=== PATIENT | male | born 1950 | race Caucasian/White ===

== ENCOUNTER 2017-08-13 12:28 | Emergency (ER) | payer MEDICARE, MEDICAID ==
--- NOTE | 2017-08-13 14:00 | RAD ---
TWO VIEWS SACRUM AND COCCYX SERIES: Indication: Back pain. FINDINGS: There is limited evaluation without a lateral view. The patient could not tolerate positioning. No ob vious discrete fracture otherwise depicted. IMPRESSION: Limited evaluation. No definite acute fracture. Limited evaluation without a lateral view. POS: [facility]
--- NOTE | 2017-08-13 14:31 | RAD ---
ONE VIEW LUMBAR SPINE: History: Pain. Comparison: None. FINDINGS: One view lumbar spine demonstrates five lumbar type vertebral bodies. No obvious fracture. Mild leftw lena rotation may be positional. IMPRESSION: Incomplete evaluation of lumbar spine. Additional imaging as warranted. POS: [facility]
[2017-08-13 15:35] LABS: Bilirubin Negative (Negative); Blood, Urine Small (Negative); Clarity CLEAR (Clear); Glucose, Urine (Dipstick) Negative (Negative); Leukocyte Large (Negative); Nitrite Negative (Negative); Protein, Urine (Dipstick) Negative (Neg-Trace); Specific Gravity, Urine 1.008 (1.002-1.036); Urobilinogen 0.2 mg/dL (0.2-1.0); pH, Urine 7.5 (5.0-9.0)
[2017-08-13 15:37] LABS: Bacteria/HPF 1+ HPF (None Seen); Hyaline Casts/LPF 0-3 HYALINE CAST LPF (0-3 Hyaline); Pathc Cast-AUWi Flag 0.72 (0-2.49); Squamous Epithelial None Seen HPF (0-3)
[2017-08-13] MEDS ORDERED: Ondansetron ODT 4 MG TAB ONE (15:55)
[2017-08-13] MEDS ORDERED: cefTRIAXone\\ROCEPHIN 1 GM VIAL ONE (16:51)
== END 2017-08-13 19:40 | disposition home or self-care (01) ==
LOC: ERS 12:28
DX: N15.9 Renal tubulo-interstitial disease, unspecified (principal); I50.9 Heart failure, unspecified; I11.0 Hypertensive heart disease with heart failure; E66.9 Obesity, unspecified; J44.9 Chronic obstructive pulmonary disease, unspecified; Z86.718 Personal history of other venous thrombosis and embolism; Z87.891 Personal history of nicotine dependence; Z79.899 Other long term (current) drug therapy
CPT/HCPCS: 51701; 72020; 72220; 81003; 81015; 96365; 96375; J0696; J2270; Q0162

== ENCOUNTER 2017-11-20 13:49 | Emergency (ER) | payer MEDICARE, MEDICAID ==
[2017-11-20] MEDS ORDERED: Sterile Water 10 ML VIAL IVP SCH (14:44)
[2017-11-20] MEDS ORDERED: Activase 2 MG VIAL CATH SCH (14:44)
== END 2017-11-20 19:36 ==
LOC: ERS 13:49
DX: T82.49XA Other complication of vascular dialysis catheter, initial encounter (principal); E11.9 Type 2 diabetes mellitus without complications; I11.0 Hypertensive heart disease with heart failure; I50.9 Heart failure, unspecified; F41.9 Anxiety disorder, unspecified; G47.30 Sleep apnea, unspecified; E66.9 Obesity, unspecified; J44.9 Chronic obstructive pulmonary disease, unspecified
CPT/HCPCS: 80061; 82248; 85610; J2997; 36415; 80053; 84443; 85025; 99284; A4216

== ENCOUNTER 2018-02-11 11:11 | Inpatient (IN) | payer MEDICARE, MEDICAID ==
[2018-02-11] MEDS ORDERED: Morphine 4 MG/ML VIAL ONE (12:06)
[2018-02-11 12:48] LABS: #Eosinphils 0.1 thou/uL (0.0-0.7); #Lymphocytes 1.2 thou/uL (1.20-3.40); #Monocytes 1.9 thou/uL (0.11-0.59); #Neutrophils 14.5 thou/uL (1.40-6.50); %Eosinophils 0.5 % (0.0-10.0); %Monocytes 10.5 % (0.0-10.0); %Neutrophils 81.9 % (42.0-75.0); Hemoglobin 12.1 g/dL (14.0-18.0); Mean Corpuscular Hemoglobin 29.3 pg (27.0-31.0); Mean Corpuscular Volume 91.6 fL (78.0-98.0); Mean Platelet Volume 7.3 fL (7.4-10.4); Platelet Count 303 thou/uL (130-400); RBC Distribution Width 13.3 % (11.5-14.5); Red Blood Cell (RBC) Count 4.13 mill/uL (4.70-6.10); White Blood Cell (WBC) Count 17.7 thou/uL (4.8-10.8)
[2018-02-11 12:55] LABS: Bilirubin Negative (Negative); Blood, Urine Small (Negative); Clarity CLEAR (Clear); Glucose, Urine (Dipstick) Negative (Negative); Leukocyte Large (Negative); Nitrite Negative (Negative); Protein, Urine (Dipstick) Negative (Neg-Trace); Specific Gravity, Urine 1.008 (1.002-1.036); Urobilinogen 0.2 mg/dL (0.2-1.0); pH, Urine 6.5 (5.0-9.0)
[2018-02-11 12:58] LABS: Bacteria/HPF None Seen HPF (None Seen); Hyaline Casts/LPF 0-3 HYALINE CAST LPF (0-3 Hyaline); Squamous Epithelial 0-3 HPF (0-3); WBC/HPF 21-50 HPF (0-3)
[2018-02-11 13:09] LABS: Renal Epithelial None Seen HPF (0-3); Transitional Epithelial NONE SEEN HPF (0-3)
--- NOTE | 2018-02-11 13:11 | RAD ---
PORTABLE CHEST: DATE: 02/11/2018. PROVIDED CLINICAL HISTORY: Chest pain. FINDINGS: Evaluation is limited by patient body habitus. Cardiac silhouette appears enlarged. No definite foc al consolidation, pleural fluid, or pneumothorax apparent. IMPRESSION: Cardiomegaly without evidence for an acute cardiopulmonary process. POS: [facility]
--- NOTE | 2018-02-11 13:12 | RAD ---
LEFT SHOULDER RADIOGRAPHS 3 VIEWS: DATE: 02/11/2018. PROVIDED CLINICAL HISTORY: Shoulder pain. FINDINGS: Evaluation is limited by patient body habitus. Acromioclavicular joint osteoarthrosis is demonstrate d. No definite evidence for a fracture or other acute osseous abnormality. If there is persistent c linical concern, conservative management and followup imaging are advised. IMPRESSION: As above. POS: [facility]
[2018-02-11 13:13] LABS: ALT (SGPT) 14 U/L (8-55); AST (SGOT) 18 U/L (5-34); Albumin 3.4 g/dL (3.4-4.8); Alkaline Phosphatase 47 U/L (40-150); Anion Gap 19 mmol/L (10-20); BUN (Urea Nitrogen) 15 mg/dL (8.4-25.7); Bilirubin, Total 0.4 mg/dL (0.2-1.2); CK (CPK) 37 U/L (30-200); Calc. Creatinine Clearance 0 mL/min (70-130); Calcium 9.1 mg/dL (7.8-10.44); Carbon Dioxide 23 mmol/L (23-31); Chloride 99 mmol/L (98-107); Estimated GFR-MDRD Greater than 90; Globulin 3.6 g/dL (2.4-3.5); Glucose 156 mg/dL (80-115); Lipase 13 U/L (8-78); Potassium 4.3 mmol/L (3.5-5.1); Sodium 137 mmol/L (136-145)
--- NOTE | 2018-02-11 13:15 | RAD ---
RIGHT SHOULDER RADIOGRAPHS 3 VIEWS: DATE: 02/11/2018. PROVIDED CLINICAL HISTORY: Right shoulder pain. FINDINGS: Evaluation is limited by patient body habitus. Narrowing of the subacromial space suggests rotator c uff insufficiency. No definite evidence for a fracture. Acromioclavicular changes are seen. IMPRESSION: Acromioclavicular joint osteoarthrosis and findings suggesting rotator cuff insufficiency. POS: [facility]
[2018-02-11] MEDS ORDERED: cefTRIAXone\\ROCEPHIN 1 GM VIAL ONE (13:24)
[2018-02-11] MEDS ORDERED: MEROPENEM 1 GM/50 ML 1 GM in Premix Bag 1 BAG IVPB SCH (14:00)
[2018-02-11] MEDS ORDERED: Acetaminophen 500 MG TAB ONE (14:03)
[2018-02-11] MEDS ORDERED: Acetaminophen 325 MG TAB PO PRN (14:38)
[2018-02-11] MEDS ORDERED: Ondansetron PF 4 MG/2 ML Vial IVP PRN (14:38)
[2018-02-11] MEDS ORDERED: Potassium Chloride 20 MEQ TAB PO SCH (15:00)
--- NOTE | 2018-02-11 15:06 | PDOC.FPRHP ---
- History of Present Illness Chief Complaint: constipation History of Present Illness: This is a 67 yo M w/ PMH including CHF, hep C, SANKET, bph, HTN, myasthenia gravis , morbid obesity, copd, DM2, and DVT who comes in with chief complaint of constipation for last 8 days. He states he has had flank pain which he describes as muscle spasm sometimes made worse by moving on the bed. Denies fevers, chills, or sweats. Denies abdominal pain. Denies N/V/D. States he has had burning with urination for 1 month but no blood in the urine. Denies blood in stool. Patient states he has tried milk of magnesia. He states he would like an enema. Patient also states he has had shoulder pain going on for a few days which he describes as an ache. States he has had cellulitus for 10 years of the lower extremities, he follows with Dr. Ricardo shankar. ED Course: Meropenem Rocephin NS x2 morphine 4 mg - Allergies/Adverse Reactions Allergies Allergy/AdvReac Type Severity Reaction Status Date / Time amoxicillin trihydrate Allergy Verified 09/28/16 17:37 [From Augmentin] clindamycin Allergy Verified 09/28/16 17:37 gatifloxacin [From Tequin] Allergy Verified 09/28/16 17:37 Penicillins Allergy Verified 02/11/18 18:56 potassium clavulanate Allergy Verified 09/28/16 17:37 [From Augmentin] vancomycin Allergy Verified 09/28/16 17:37 morphine [From MS Contin] AdvReac Mild Anxiety Verified 10/11/16 10:19 - Home Medications Medication Instructions Recorded Confirmed Type Pregabalin [Lyrica] 75 mg PO TID 09/20/15 09/29/16 History Ipratropium/Albuterol Sulfate 3 ml NEB Q6HR neb 04/20/16 09/29/16 Rx [DuoNeb] Pyridostigmine [place] [Mestinon] 30 mg PO 0900,1300,1700 tab 04/20/16 Rx predniSONE 40 mg PO QAM-WM #30 tab 06/20/16 09/29/16 Rx Potassium Chloride [K-Dur] 20 meq PO TID-WM 08/12/16 09/29/16 History Carvedilol [Coreg] 25 mg PO QAM 09/29/16 09/29/16 History Cyclobenzaprine HCl 10 mg PO HS PRN 02/11/18 02/11/18 History Sertraline HCl 50 mg PO DAILY 02/11/18 02/11/18 History Spironolactone 25 mg PO 02/11/18 History Tamsulosin HCl [Flomax] 0.4 mg PO DAILY 02/11/18 02/11/18 History Torsemide [Demadex] 100 mg PO DAILY 02/11/18 02/11/18 History - History PMHx: chf, hep c, sanket, bph, htn, myasthenia gravis, obesity, copd, dm2, dvt PSHx: cholecystectomy FHx:non-contributory Social: former drug and tobacco use, stoppped at age 32, no alcohol - Review of Systems General: denies: fever/chills, night sweats, fatigue ENT: denies: nasal congestion Respiratory: denies: cough, congestion, shortness of breath Cardiovascular: reports: edema. denies: chest pain, palpitation Gastrointestinal: reports: constipation, abdominal pain. denies: nausea, vomiting, diarrhea, GI bleeding Genitourinary: reports: dysuria. denies: discharge Skin: reports: other (chronic cellutlitus) Musculoskeletal: denies: pain, arthritis/arthralgias Neurological: denies: numbness, weakness - Vital signs BP: 150/88 HR: 80 RR: 26 Tmax: 99.2 Pox: 94% on RA Wt: 222kg - Physical Exam Constitutional: NAD, awake, alert and oriented, other (morbidly obese, appears older than age) HEENT: normocephalic and atraumatic, PERRLA, MMM Neck: supple Heart: RRR -Heart: difficult to appreciate 2/2 morbidly obesity Lungs: CTAB -Lungs: decreased air movement 2/2 morbid obesity, mild wheeze on the R side Abdomen: soft, non-tender, bowel sounds present -Abdomen: morbidly obese Musculoskeletal: normal tone Neurological: no focal deficit, CN II-XII intact -Skin: redness and warmth to the R and L lower extremities around the ankles Psychiatric: normal mood and affect FMR H&P: Results - Labs Result Diagrams: 02/11/18 12:41 02/11/18 12:41 Lab results: WBC 17.7 thou/uL (4.8-10.8) H 02/11/18 12:41 Hgb 12.1 g/dL (14.0-18.0) L 02/11/18 12:41 Hct 37.9 % (42.0-52.0) L 02/11/18 12:41 MCV 91.6 fL (78.0-98.0) 02/11/18 12:41 Plt Count 303 thou/uL (130-400) 02/11/18 12:41 Neutrophils % 81.9 % (42.0-75.0) H 02/11/18 12:41 Sodium 137 mmol/L (136-145) 02/11/18 12:41 Potassium 4.3 mmol/L (3.5-5.1) 02/11/18 12:41 Chloride 99 mmol/L (98-107) 02/11/18 12:41 Carbon Dioxide 23 mmol/L (23-31) 02/11/18 12:41 BUN 15 mg/dL (8.4-25.7) 02/11/18 12:41 Creatinine 0.82 mg/dL (0.7-1.3) 02/11/18 12:41 Glucose 156 mg/dL (80-115) H 02/11/18 12:41 Lactic Acid 3.1 mmol/L (0.5-2.2) H 02/11/18 12:41 Calcium 9.1 mg/dL (7.8-10.44) 02/11/18 12:41 Total Bilirubin 0.4 mg/dL (0.2-1.2) 02/11/18 12:41 AST 18 U/L (5-34) 02/11/18 12:41 ALT 14 U/L (8-55) 02/11/18 12:41 Alkaline Phosphatase 47 U/L (40-150) 02/11/18 12:41 Creatine Kinase 37 U/L (30-200) 02/11/18 12:41 B-Natriuretic Peptide 27.2 pg/mL (0-100) 02/11/18 12:41 Serum Total Protein 7.0 g/dL (5.8-8.1) 02/11/18 12:41 Albumin 3.4 g/dL (3.4-4.8) 02/11/18 12:41 Lipase 13 U/L (8-78) 02/11/18 12:41 Urine Ketones Negative mg/dL (Negative) 02/11/18 12:20 Urine Blood Small (Negative) H 02/11/18 12:20 Urine Nitrite Negative (Negative) 02/11/18 12:20 Ur Leukocyte Esterase Large (Negative) H 02/11/18 12:20 Urine RBC 4-6 HPF (0-3) 02/11/18 12:20 Urine WBC 21-50 HPF (0-3) H 02/11/18 12:20 Ur Squamous Epith Cells 0-3 HPF (0-3) 02/11/18 12:20 Urine Bacteria None Seen HPF (None Seen) 02/11/18 12:20 FMR H&P: A/P - Problem List (1) Sepsis secondary to UTI Current Visit: Yes Status: Acute Code(s): A41.9 - SEPSIS, UNSPECIFIED ORGANISM; N39.0 - URINARY TRACT INFECTION, SITE NOT SPECIFIED (2) Hep C w/o coma, chronic Current Visit: Yes Status: Acute Code(s): B18.2 - CHRONIC VIRAL HEPATITIS C (3) HTN (hypertension) Current Visit: Yes Status: Acute Code(s): I10 - ESSENTIAL (PRIMARY) HYPERTENSION (4) COPD (chronic obstructive pulmonary disease) Current Visit: Yes Status: Acute (5) Diabetes mellitus Current Visit: Yes Status: Acute Code(s): E11.9 - TYPE 2 DIABETES MELLITUS WITHOUT COMPLICATIONS (6) DVT (deep venous thrombosis) Current Visit: No Status: Acute Code(s): I82.409 - ACUTE EMBOLISM AND THOMBOS UNSP DEEP VN UNSP LOWER EXTREMITY Comment: f/u inr (7) BPH (benign prostatic hyperplasia) Current Visit: No Status: Chronic Code(s): N40.0 - BENIGN PROSTATIC HYPERPLASIA WITHOUT LOWER URINRY TRACT SYMP (8) Morbid obesity with body mass index of 50 or higher Current Visit: No Status: Chronic Code(s): E66.01 - MORBID (SEVERE) OBESITY DUE TO EXCESS CALORIES (9) Myasthenia gravis Current Visit: No Status: Chronic Code(s): G70.00 - MYASTHENIA GRAVIS WITHOUT (ACUTE) EXACERBATION Comment: on immunosuppressants (10) SANKET (obstructive sleep apnea) Current Visit: No Status: Chronic Code(s): G47.33 - OBSTRUCTIVE SLEEP APNEA (ADULT) (PEDIATRIC) - Plan # Sepsis 2/2 UTI - blood cx, urine cx - meropenem as discussed with ID - afebrile, BP WNL, WBC 17.7 - lactic 3.1 will trend # Constipation - disempacted in ED, removed 1 golf ball sized pellet and 3 slightly smaller ones - enema - senna, milk of mag # Chronic Cellulitus - on levoquin at [place], hold - cont metronidazole # SANKET 2/2 morbid obesity - duonebs PRN - o2 > 88% - Cpap 16/ # CHF not in exacerbation - home meds # Chronic Hep C # BPH - home meds # DM - not on meds per [place] records - SSI, accuchecks # Myasthenia Gravis - home meds # Hx of DVT - lovenox - will consult pharmacy for appropriate dosing - warfarin not on home med list, will check INR as he has been on it in the past Fluids: NS 150 ml/hr Diet: HH Dispo: 2 days pending urine, blood cx FMR H&P: Upper Level - Plan Date/Time: 02/11/181499 I, [], have evaluated this patient and agree with findings/plan as outlined by inclusion intern resident. Pertinent changes/additions are listed here. Addendum - Attending - Attending Attestation Date/Time: 02/11/182019 I personally evaluated the patient and discussed the management with Dr. Micky Celaya I agree with the History, Examination, Assessment and Plan documented above with any addition or exceptions noted below. 67 yo morbidly obese bed bound male admitted from local [place] with sepsis secondary to pyelonephritis . Patient recently c/o LB pain and dysuria. Patient with multiple drug antibiotic allergies and consulted ID for recommendations for antibiotic coverage(meropenam). Patient with chronic cellulitis LE. 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 Rectal exam notable for fecal impaction and will continued bowel evacuation.
[2018-02-11 15:16] LABS: INR-International Normal Ratio 2.5; Prothrombin Time 27.4 SEC (12.0-14.7)
[2018-02-11] MEDS ORDERED: HumaLOG 300 UNITS/3 ML VIAL SC PRN (15:25)
[2018-02-11] MEDS ORDERED: Dextrose 5% in Water 1,000 ML IV PRN (15:25)
[2018-02-11] MEDS ORDERED: Dextrose 50% Abboject 50 ML SYRINGE SLOW IVP PRN (15:25)
[2018-02-11] MEDS ORDERED: Milk Of Magnesia 30 ML UDCUP PO SCH (15:30)
[2018-02-11] MEDS ORDERED: Potassium Chloride 20 MEQ TAB ONE (15:58)
[2018-02-11] MEDS: metroNIDAZOLE 500 MG TAB PO SCH ×2 (16:02→22:29)
[2018-02-11] MEDS ORDERED: Warfarin Sodium 5 MG TAB PO SCH (17:00)
[2018-02-11 17:55] VITALS: BMI 67.0
[2018-02-11] MEDS ORDERED: Enoxaparin Sodium 40 MG/0.4 ML SYRINGE SC SCH ×2 (18:00→18:15)
[2018-02-11] MEDS: Pregabalin 75 MG CAP PO SCH ×2 (18:26→22:29)
[2018-02-11] MEDS: Pyridostigmine Bromide IR 60 MG TAB PO SCH (18:37)
[2018-02-11] MEDS: Sodium Chloride 0.9% 1,000 ML IV SCH ×2 (18:37→22:41)
[2018-02-11 19:06] LABS: Lactic Acid 2.1 mmol/L (0.5-2.2)
[2018-02-11] MEDS ORDERED: Meropenem 1 GM in Admixture Fee 1 EACH IVPB SCH (22:00)
[2018-02-11] MEDS: Senokot S 8.6-50 MG TAB PO SCH (22:29)
[2018-02-11] MEDS: MEROPENEM 1 GM/50 ML 1 GM in Premix Bag 1 BAG IVPB SCH (22:30)
[2018-02-11] MEDS: traMADol HCl 50 MG TAB PO PRN (22:39)
[2018-02-12] MEDS: Sodium Chloride 0.9% 1,000 ML IV SCH ×2 (02:05→11:21)
[2018-02-12] MEDS: traMADol HCl 50 MG TAB PO PRN ×2 (03:42→10:28)
[2018-02-12 05:33] LABS: #Eosinphils 0.2 thou/uL (0.0-0.7); #Lymphocytes 1.6 thou/uL (1.20-3.40); #Neutrophils 12.1 thou/uL (1.40-6.50); %Basophils 0.2 % (0.0-1.0); %Lymphocytes 10.2 % (21.0-51.0); %Monocytes 12.3 % (0.0-10.0); %Neutrophils 76.2 % (42.0-75.0); Hemoglobin 11.6 g/dL (14.0-18.0); Mean Corpuscular HGB CONC 32.2 g/dL (32.0-36.0); Mean Corpuscular Hemoglobin 29.6 pg (27.0-31.0); Mean Corpuscular Volume 91.7 fL (78.0-98.0); Mean Platelet Volume 8.1 fL (7.4-10.4); Platelet Count 331 thou/uL (130-400); RBC Distribution Width 13.4 % (11.5-14.5); Red Blood Cell (RBC) Count 3.94 mill/uL (4.70-6.10); White Blood Cell (WBC) Count 15.9 thou/uL (4.8-10.8)
[2018-02-12 05:38] LABS: INR-International Normal Ratio 2.6; Prothrombin Time 28.2 SEC (12.0-14.7)
[2018-02-12 05:56] LABS: Anion Gap 17 mmol/L (10-20); BUN (Urea Nitrogen) 14 mg/dL (8.4-25.7); Calc. Creatinine Clearance 266 mL/min (70-130); Calcium 8.8 mg/dL (7.8-10.44); Carbon Dioxide 25 mmol/L (23-31); Chloride 101 mmol/L (98-107); Estimated GFR-MDRD Greater than 90; Glucose 122 mg/dL (80-115); Potassium 4.1 mmol/L (3.5-5.1); Sodium 139 mmol/L (136-145)
[2018-02-12] MEDS: MEROPENEM 1 GM/50 ML 1 GM in Premix Bag 1 BAG IVPB SCH ×2 (05:59→13:33)
[2018-02-12] MEDS ORDERED: Spironolactone 25 MG TAB PO SCH (08:00)
[2018-02-12] MEDS ORDERED: predniSONE 20 MG TAB PO SCH (08:00)
--- NOTE | 2018-02-12 08:29 | PDOC.FM ---
- Subjective Subjective: This morning patient states that frequent bed re-positioning is causing him pain. He states the flank pain he came in with is improved since having fecal dis-impaction. He did not have BM overnight. He denies N/V. Denies fevers, chills, sweats. Denies burning with urination or blood in the urine. Patient states he would like to go back to [place] as soon as he is medically cleared. He understands why he needs to be here for now. - Objective Vital Signs & Weight: Vital Signs (12 hours) Temp Pulse Resp BP Pulse Ox 02/12/18 03:40 98.7 F 69 22 H 128/65 92 L 02/11/18 21:00 82 18 96 Weight Weight 214.549 kg I&O: 02/11/18 02/12/18 02/13/18 06:59 06:59 06:59 Intake Total 2500 Balance 2500 Result Diagrams: 02/12/18 04:41 02/12/18 04:41 Phys Exam - Physical Examination Constitutional: NAD morbidly obese HEENT: PERRLA, moist MMs decreased air movement 2/2 body habitus mild expiratory wheezes on the R Cardiovascular: RRR, no significant murmur morbidly obese No pain to palpation Musculoskeletal: pulses present Boil on R foot, erythematous, patient states has been there some time Neurological: non-focal, moves all 4 limbs Psychiatric: normal affect, A&O x 3 Dx/Plan (1) Sepsis secondary to UTI Code(s): A41.9 - SEPSIS, UNSPECIFIED ORGANISM; N39.0 - URINARY TRACT INFECTION, SITE NOT SPECIFIED Status: Acute (2) Hep C w/o coma, chronic Code(s): B18.2 - CHRONIC VIRAL HEPATITIS C Status: Acute (3) HTN (hypertension) Code(s): I10 - ESSENTIAL (PRIMARY) HYPERTENSION Status: Acute (4) COPD (chronic obstructive pulmonary disease) Status: Acute (5) Diabetes mellitus Code(s): E11.9 - TYPE 2 DIABETES MELLITUS WITHOUT COMPLICATIONS Status: Acute (6) DVT (deep venous thrombosis) Code(s): I82.409 - ACUTE EMBOLISM AND THOMBOS UNSP DEEP VN UNSP LOWER EXTREMITY Status: Acute (7) BPH (benign prostatic hyperplasia) Code(s): N40.0 - BENIGN PROSTATIC HYPERPLASIA WITHOUT LOWER URINRY TRACT SYMP Status: Chronic (8) Morbid obesity with body mass index of 50 or higher Code(s): E66.01 - MORBID (SEVERE) OBESITY DUE TO EXCESS CALORIES Status: Chronic (9) Myasthenia gravis Code(s): G70.00 - MYASTHENIA GRAVIS WITHOUT (ACUTE) EXACERBATION Status: Chronic (10) SANKET (obstructive sleep apnea) Code(s): G47.33 - OBSTRUCTIVE SLEEP APNEA (ADULT) (PEDIATRIC) Status: Chronic - Plan Plan: # Sepsis 2/2 UTI- resolved - blood cx, urine cx - meropenem as discussed with ID - afebrile, BP WNL, WBC 17.7-> 15.6 - lactic 3.1-> 1.3 -> 2.1 # Constipation - disempacted in ED, removed 1 golf ball sized pellet and 3 slightly smaller ones - ordered enema - senna, milk of mag # Chronic Cellulitus - on levoquin at [place], hold - on metronidazole for cellulitus at [facility] per patient # SANKET 2/2 morbid obesity - duonebs PRN - o2 > 88% - Cpap 28/05 # CHF not in exacerbation - home meds # Chronic Hep C # BPH - home meds # DM - not on meds per [place] records - SSI, accuchecks # Myasthenia Gravis - home meds # Hx of DVT - on warfarin per patient, this is not on his [facility] med list - requested updated med list - started warfarin at 5mg daily which was dose from previous hosp stay - patient states he follows with coumadin clinic Fluids: NS 150 ml/hr Diet: Dispo: pending cultures for sensitivity, sepsis resolve, will discuss d/c this afternoon and f/u cultures outpt per patient's request Addendum - Attending - Attending Attestation Date/Time: 02/12/18 [id number] I personally evaluated the patient and discussed the management with Dr. Celaya. I agree with the History, Examination, Assessment and Plan documented above with any addition or exceptions noted below. The patient is feeling better. Will give enema this morning. Called [facility]. Nurse noted that his UA finalized and grew klebsiella sensitive to levaquin. Gatifloxacin is listed in the patient's allergies however he had been receiving levaquin since 02/10 without reaction to the drug. Will send him home to continue this antibiotic and with a bowel regimen.
[2018-02-12] MEDS ORDERED: Fleet Enema 133 ML BOT FS SCH (08:30)
[2018-02-12] MEDS ORDERED: Warfarin Sodium 5 MG TAB PO SCH ×2 (09:00→17:00)
[2018-02-12] MEDS ORDERED: Enoxaparin Sodium 40 MG/0.4 ML SYRINGE SC SCH (09:00)
[2018-02-12] MEDS ORDERED: Tamsulosin HCl 0.4 MG CAP PO SCH (09:00)
[2018-02-12] MEDS ORDERED: Carvedilol 25 MG TAB PO SCH (09:00)
[2018-02-12] MEDS ORDERED: Torsemide 100 MG TAB PO SCH (09:00)
[2018-02-12] MEDS: Pyridostigmine Bromide IR 60 MG TAB PO SCH ×2 (09:04→13:33)
[2018-02-12] MEDS: Senokot S 8.6-50 MG TAB PO SCH (09:04)
[2018-02-12] MEDS: Pregabalin 75 MG CAP PO SCH ×2 (09:05→15:27)
[2018-02-12] MEDS: metroNIDAZOLE 500 MG TAB PO SCH ×2 (09:05→15:27)
[2018-02-12] MEDS ORDERED: Sulfameth/Trimethoprim DS 800-160mg TAB PO SCH ×3 (09:42→21:00)
--- NOTE | 2018-02-12 13:35 | DIS ---
DATE OF ADMISSION: 02/11/2018 DATE OF DISCHARGE: 02/12/2018 RESIDENT: Alvaro Celaya MD. ADMITTING ATTENDING: Reji Rizvi MD. DISCHARGE ATTENDING: Edith Harp MD. CONSULTS: None. PROCEDURE: Fecal disimpaction. PRIMARY DIAGNOSES: Constipation, sepsis secondary to urinary tract infection. SECONDARY DIAGNOSES: 1. Chronic hepatitis C. 2. Hypertension. 3. Chronic obstructive pulmonary disease. 4. Diabetes mellitus. 5. History of deep venous thrombosis. 6. Benign prostatic hyperplasia. 7. Morbid obesity with BMI greater than 50. 8. Myasthenia gravis. 9. Obstructive sleep apnea. DISCHARGE MEDICATIONS: The patient is to be restarted on same medications as he was at the [facility]. Incomplete med list was faxed from the [facility]. He should be restarted on the same regimen he was at, at the time of admission including the Levaquin 750 mg daily which he was already taking at the [facility]. Senna docusate was added to this regimen. DISCONTINUED MEDICATIONS: None. HISTORY OF PRESENT ILLNESS AND HOSPITAL COURSE: This is a 67-year-old gentleman, who comes in with chief complaint of flank pain going on for about a week. He states that he has not had a bowel movement in the last 8 days. He describes the flank pain as muscle spasms which are made worse with moving. Denies fevers, chills, sweats. Denied abdominal pain. Denied nausea, vomiting, diarrhea. He states he has a burning with urination for about one month with no blood in the urine. The patient denied blood in the stool. He stated that he had tried milk of magnesia at the [facility], and he would like enema. He also complained of shoulder pain going on for a few days, which he described as an ache, made worse with movement. He states that he has had cellulitis of lower extremities for about 10 years which he follows with Dr. Silva for on an outpatient basis. The patient was admitted to the hospital meeting sepsis criteria for white count and respiratory rate. The patient had a urine culture at the [facility] 3 days prior, results were obtained on date of discharge with sensitivity to Levaquin which the patient was already on at the [facility]. I discussed this with [facility] staff that they can continue his Levaquin, which the patient had at the [facility] already prescribed. The patient had an enema and fecal disimpaction while here at the hospital. Disimpacted 4 pellets about the size of golf ball on the date of admission. The patient did not have bowel movement at the time of discharge, but Fleet Enema was given. Prescribed senna and milk of magnesia for discharge. The patient has chronic cellulitis of the lower extremities. Recommended Podiatry consult upon discharge as well as follow up with ID Dr. Silva for followup. The patient's lactic acid on admission was 3.1, but this came down to 1.3. DISPOSITION: Stable. DISCHARGE INSTRUCTIONS: Location: [facility]. Diet: Bariatric. ACTIVITY: As tolerated. FOLLOWUP: 1. [employer] for assistance with changing diet to assist with weight loss. 2. Dr. Silva in 1 to 2 weeks for followup on chronic cellulitis. 3. Podiatry in 1 week for followup on boil of left foot. 4. PCP in 2 to 3 days. Job ID: [id number]
[2018-02-12 15:27] VITALS: BP 168/94; TEMP 98.7
--- NOTE | 2018-02-14 10:36 | PQF ---
[employer] Reports Winform ViewerMISHA WHITT GRADY *r [phone] [address] [place] [address] [phone] CLINICAL DOCUMENTATION CLARIFICATION FORM: POST DISCHARGE Addendum to original discharge summary date: CHF present on admission and under treatment Late entry note date: __ Please exercise your independent, professional judgment in responding to the clarification form. Clinical indicators are provided on the bottom of this form for your review Please check appropriate box(s): HEART FAILURE: A. TYPE: [ ] Systolic / HFrEF [ x] Diastolic / HFpEF [ ] Combined Systolic / Diastolic B. ACUITY [ ] Acute [ ] Acute on Chronic [ x ] Chronic [ ] Other diagnosis [ ] Unable to determine In addition, please specify: Present on Admission (POA): [ x ] Yes [ ] No [ ] Unable to determine For continuity of documentation, please document condition throughout progress notes and discharge summary. Thank You. CLINICAL INDICATORS - SIGNS / SYMPTOMS / LABS CHF- ED, H&P, PROGRESS NOTES, D/S RISKS: HYPERTENSION- ED, H&P, PROGRESS NOTES, D/S TREATMENTS: ON HOME MEDS, SPIRONOLACTONE- H&P (This form is maintained as a part of the permanent medical record) 2014 [employer]. All Rights Reserved [employer] [email or web address] [phone] [facility]
== END 2018-02-12 16:24 | DRG 872 ==
LOC: ERS 11:11 → ERHOLD 14:45 → 2NO 17:20
PROVIDERS: ADMIT Family Medicine; ATTEND Family Medicine
DX: A41.9 Sepsis, unspecified organism (principal); Z68.44 Body mass index [BMI] 60.0-69.9, adult; L03.116 Cellulitis of left lower limb; L03.115 Cellulitis of right lower limb; N39.0 Urinary tract infection, site not specified; I50.32 Chronic diastolic (congestive) heart failure; B18.2 Chronic viral hepatitis C; G47.33 Obstructive sleep apnea (adult) (pediatric); N40.0 Benign prostatic hyperplasia without lower urinary tract symptoms; I11.0 Hypertensive heart disease with heart failure; E66.01 Morbid (severe) obesity due to excess calories; E11.9 Type 2 diabetes mellitus without complications; K59.00 Constipation, unspecified; G70.00 Myasthenia gravis without (acute) exacerbation; J44.9 Chronic obstructive pulmonary disease, unspecified; Z87.891 Personal history of nicotine dependence; Z86.718 Personal history of other venous thrombosis and embolism; Z90.49 Acquired absence of other specified parts of digestive tract
CPT/HCPCS: 36415; 36416; 51701; 71045; 80048; 80053; 81003; 81015; 82550; 83605; 83690; 83880; 84484; 85025; 85610; 87040; 87077; 87086; 87186; 94660; 96361; 96365; 96367; 96375; J0696; J1650; J2185; J2270; J7506

== ENCOUNTER 2018-03-28 13:17 | Inpatient (IN) | payer MEDICARE, MEDICAID ==
[2018-03-28 14:36] LABS: #Eosinphils 0.2 thou/uL (0.0-0.7); #Lymphocytes 1.3 thou/uL (1.20-3.40); #Monocytes 0.7 thou/uL (0.11-0.59); #Neutrophils 9.1 thou/uL (1.40-6.50); %Basophils 0.2 % (0.0-1.0); %Lymphocytes 11.2 % (21.0-51.0); %Monocytes 6.5 % (0.0-10.0); %Neutrophils 80.1 % (42.0-75.0); Mean Corpuscular HGB CONC 32.9 g/dL (32.0-36.0); Mean Corpuscular Hemoglobin 29.5 pg (27.0-31.0); Mean Corpuscular Volume 89.7 fL (78.0-98.0); Mean Platelet Volume 7.2 fL (7.4-10.4); Platelet Count 310 thou/uL (130-400); RBC Distribution Width 14.8 % (11.5-14.5); Red Blood Cell (RBC) Count 4.08 mill/uL (4.70-6.10); White Blood Cell (WBC) Count 11.3 thou/uL (4.8-10.8)
[2018-03-28] MEDS ORDERED: methylPREDNISolone Sod Succ/PF 125 MG/2 ML VIAL ONE (14:53)
[2018-03-28] MEDS ORDERED: Famotidine/PF 20 mg/2ml Vial ONE (14:53)
[2018-03-28] MEDS ORDERED: diphenhydrAMINE 50 MG/ML VIAL ONE (14:53)
[2018-03-28 15:03] LABS: ALT (SGPT) 23 U/L (8-55); AST (SGOT) 23 U/L (5-34); Albumin 3.7 g/dL (3.4-4.8); Alkaline Phosphatase 75 U/L (40-150); Anion Gap 19 mmol/L (10-20); BUN (Urea Nitrogen) 24 mg/dL (8.4-25.7); Bilirubin, Total 0.2 mg/dL (0.2-1.2); Calc. Creatinine Clearance 0 mL/min (70-130); Calcium 8.8 mg/dL (7.8-10.44); Carbon Dioxide 25 mmol/L (23-31); Chloride 102 mmol/L (98-107); Estimated GFR-MDRD Greater than 90; Globulin 3.1 g/dL (2.4-3.5); Glucose 146 mg/dL (80-115); Potassium 4.3 mmol/L (3.5-5.1); Protein, Total 6.8 g/dL (5.8-8.1); Sodium 142 mmol/L (136-145)
[2018-03-28] MEDS ORDERED: Acetaminophen 325 MG TAB PO PRN (16:23)
[2018-03-28] MEDS ORDERED: Dextrose 50% Abboject 50 ML SYRINGE SLOW IVP PRN (16:23)
[2018-03-28] MEDS ORDERED: Guaifenesin DM 100-10/5 ML UDCUP PO PRN (16:23)
[2018-03-28] MEDS ORDERED: Dextrose 5% in Water 1,000 ML IV PRN (16:23)
--- NOTE | 2018-03-28 16:59 | HP ---
REASON FOR ADMISSION: Drug rash. HISTORY OF PRESENT ILLNESS: The patient is a 67[facility]-old [facility] resident , who mentions that from last 10 days or so, the patient has been having a rash, which has been slowly getting worse. This rash was initially on his feet. It was red and swollen. He was given Keflex. Thinking it was cellulitis by his nurse practitioner. Also, the patient was started on Tamiflu at [facility] with index case of flu with another resident there. The rash was progressively getting worse, and by last Sunday, the rash had come up to his knees. Then, they thought he might be allergic to Keflex and Keflex was held and Tamiflu was continued. As this was progressively getting worse, they stopped Tamiflu as well. This Sunday, Dr. Ozzy Mishra, his primary care physician asked him to continue Tamiflu and he has been taking it all the week. He says the rash is come up all through his back and to the front of his chest now and he thinks he is swollen and hot. He normally has loose stools, but has been having more diarrhea now. PAST MEDICAL AND SURGICAL HISTORY: History of myasthenia gravis on mycophenolate, Pyridostigmine, and prednisone; history of hypertension; poor functional status with the patient being a [facility] resident; history of CHF; obstructive sleep apnea; benign prostatic hypertrophy; morbid obesity; COPD; diabetes mellitus type 2; history of DVT in the past; chronic hep C; and cholecystectomy. CURRENT MEDICATIONS: Please note, [facility] was not sent accurate list of medications. He lives at [facility] and will be obtaining the same now. Per his prior discharge from here, the patient was on, 1. Tylenol 3. 2. Coreg 12.5 mg p.o. nightly. 3. Cholestyramine 4 g p.o. twice daily. 4. Flexeril 10 mg nightly. 5. Gabapentin 100 mg p.o. 3 times daily. 6. Mucinex 600 mg twice daily. 7. [place] p.r.n. 8. Motrin p.r.n. 9. Mycophenolate 500 mg twice daily. 10. Potassium chloride 40 mEq daily. 11. Prednisone 20 mg daily. 12. Lyrica 75 mg 3 times daily. 13. Pyridostigmine 30 mg 3 times daily. 14. Zoloft 50 mg daily. 15. Spironolactone 25 mg daily. 16. Flomax 0.4 mg daily. 17. Torsemide 100 mg daily. 18. Coumadin 5 mg daily. 19. Senokot two tablets p.o. twice daily. ALLERGIES: THE PATIENT IS ALLERGIC TO MULTIPLE MEDICATIONS INCLUDING AUGMENTIN, CLINDAMYCIN, GATIFLOXACIN, VANCOMYCIN, AND MS CONTIN. PERSONAL HISTORY: Does not abuse alcohol or drugs. Quit smoking many years ago. Has been a fdc resident at [facility]. He is essentially bed bound and they have been trying to get him to mobilize into a wheelchair, but the patient got sick from last 3 weeks or so. The patient states they in fact got a new wheelchair that fits him now at the [facility]. FAMILY HISTORY: Mother at the age of 95, father at the age of 91, both of natural causes. Code status, the patient wants to be a do not attempt to resuscitate. Power of contracts attorney is Ms. Ashley Ayoub, who is a close family friend of him. REVIEW OF SYSTEMS: CONSTITUTIONAL: Negative for weight loss or gain, ability to conduct usual activities. SKIN: Negative for rash, itching. EYES: Negative for double vision, pain. ENT/MOUTH: Negative for nose bleeding, neck stiffness, pain, tenderness. CARDIOVASCULAR: Negative for palpitations, dyspnea on exertion, orthopnea. RESPIRATORY: Negative for shortness of breath, wheezing, cough, hemoptysis, fever or night sweats. GASTROINTESTINAL: Negative for poor appetite, abdominal pain, heartburn, nausea , vomiting, constipation, or diarrhea. GENITOURINARY: Negative for urgency, frequency, dysuria, nocturia. MUSCULOSKELETAL: Negative for pain, swelling. NEUROLOGIC/PSYCHIATRIC: Negative for anxiety, depression. ALLERGY/IMMUNOLOGIC: Negative for skin rash, bleeding tendency. PHYSICAL EXAMINATION: GENERAL: The patient is a 67-year-old male, who is currently in mild distress from pain and swelling due to rash he has had. VITAL SIGNS: Blood pressure 170/86, pulse 74 per minute, respiratory rate 20 per minute, temperature 98.1 degrees Fahrenheit, and saturating 95% on room air. NECK: Supple. No elevated JVD. HEENT: Eyes; extraocular muscles intact. Pupils are reacting to light. Oral cavity, mucous membranes are dry. No exudates or congestion. RESPIRATORY SYSTEM: Air entry 1+ bilateral. Distant breath sounds. CARDIOVASCULAR SYSTEM: S1-S2 heard. Mildly tachycardic. ABDOMEN: Soft. No obvious organomegaly felt. The patient has a very obese abdomen. EXTREMITIES: There is diffuse erythematous rash with edema. No calf tenderness. The patient moves all extremities. CENTRAL NERVOUS SYSTEM: No gross focal deficits noted. The patient is awake and oriented well. PSYCHIATRIC SYSTEM: No obvious hallucinations or delusions. LABORATORY DATA: White count of 11, H and H of 12 and 36, platelet count 310, and MCV is 89 with 80% neutrophils. Electrolytes stable. BUN 24, creatinine 0.8, serum glucose 146, and CRP 2.3. Liver enzymes within normal limits. Albumin 3.7. CLINICAL IMPRESSION AND PLAN: The patient will be admitted to medical floor for severe drug eruption, which has been progressively getting worse from last 10 days. He is also allergic to multiple medications. As the patient is already on prednisone, we will start him on Solu-Medrol 40 mg IV q.6 hourly. He will also be on Pepcid 20 mg twice daily. I have spoken to Dr. Silva, who will be evaluating the patient as well. We will continue his myasthenic medication including mycophenolate and pyridostigmine as before. We will obtain stool and blood cultures. The patient has chronic hep C and it is unclear if his current rash is related to that. We will obtain accurate medication list from his [facility]. Job ID: [id number] [facility]
[2018-03-28] MEDS ORDERED: Acetaminophen/Codeine 30-300mg Tablet PO PRN (17:11)
[2018-03-28] MEDS: Pyridostigmine Bromide IR 60 MG TAB PO SCH (22:57)
[2018-03-28] MEDS: methylPREDNISolone Sod Succ 40 MG VIAL IVP SCH (22:57)
[2018-03-28] MEDS: Gabapentin 100 MG CAP PO SCH (22:58)
[2018-03-28] MEDS: guaiFENesin ER 600 MG TAB PO SCH (22:58)
[2018-03-28] MEDS: Cyclobenzaprine 10 MG TAB PO SCH (22:58)
[2018-03-28] MEDS: Cholestyramine/Aspartame 4 gm Packet PO SCH (22:58)
[2018-03-28] MEDS: Pregabalin 75 MG CAP PO SCH (22:58)
[2018-03-28] MEDS: HYDROcodone/Acetaminophen 5/325 mg Tablet PO SCH (22:59)
[2018-03-28] MEDS: Famotidine 20 MG TAB PO SCH (22:59)
[2018-03-28] MEDS: Mycophenolate 250 MG CAP PO SCH (23:14)
[2018-03-29 00:32] VITALS: BMI 62.8
[2018-03-29] MEDS ORDERED: Prevnar 13-Val Conj/PF 0.5 ML SYRINGE IM ONE (02:00)
[2018-03-29] MEDS: Bacteriostatic Water 30 ML VIAL FS PRN ×3 (03:58→14:41)
[2018-03-29] MEDS: methylPREDNISolone Sod Succ 40 MG VIAL IVP SCH ×4 (03:58→21:07)
[2018-03-29 08:08] LABS: #Eosinphils 0.1 thou/uL (0.0-0.7); #Lymphocytes 1.6 thou/uL (1.20-3.40); #Monocytes 0.3 thou/uL (0.11-0.59); #Neutrophils 10.6 thou/uL (1.40-6.50); %Eosinophils 0.7 % (0.0-10.0); %Lymphocytes 12.6 % (21.0-51.0); %Monocytes 2.2 % (0.0-10.0); %Neutrophils 84.4 % (42.0-75.0); Hemoglobin 11.8 g/dL (14.0-18.0); Mean Corpuscular Hemoglobin 28.7 pg (27.0-31.0); Mean Corpuscular Volume 89.5 fL (78.0-98.0); Mean Platelet Volume 7.7 fL (7.4-10.4); Platelet Count 360 thou/uL (130-400); RBC Distribution Width 15.1 % (11.5-14.5); Red Blood Cell (RBC) Count 4.12 mill/uL (4.70-6.10); White Blood Cell (WBC) Count 12.5 thou/uL (4.8-10.8)
[2018-03-29] MEDS: Enoxaparin Sodium 40 MG/0.4 ML SYRINGE SC SCH (08:13)
[2018-03-29] MEDS: Gabapentin 100 MG CAP PO SCH ×3 (08:13→20:47)
[2018-03-29] MEDS: Cholestyramine/Aspartame 4 gm Packet PO SCH ×2 (08:13→16:56)
[2018-03-29] MEDS: Famotidine 20 MG TAB PO SCH ×2 (08:14→20:47)
[2018-03-29] MEDS: HYDROcodone/Acetaminophen 5/325 mg Tablet PO SCH ×3 (08:14→20:49)
[2018-03-29] MEDS: Pregabalin 75 MG CAP PO SCH ×3 (08:14→20:48)
[2018-03-29] MEDS: guaiFENesin ER 600 MG TAB PO SCH ×2 (08:14→20:49)
[2018-03-29] MEDS: Tamsulosin HCl 0.4 MG CAP PO SCH (08:15)
[2018-03-29 08:27] LABS: ALT (SGPT) 23 U/L (8-55); AST (SGOT) 19 U/L (5-34); Albumin 3.8 g/dL (3.4-4.8); Alkaline Phosphatase 58 U/L (40-150); Anion Gap 21 mmol/L (10-20); BUN (Urea Nitrogen) 25 mg/dL (8.4-25.7); Bilirubin, Total 0.3 mg/dL (0.2-1.2); Calc. Creatinine Clearance 234 mL/min (70-130); Calcium 9.2 mg/dL (7.8-10.44); Carbon Dioxide 24 mmol/L (23-31); Chloride 102 mmol/L (98-107); Estimated GFR-MDRD 84; Globulin 2.8 g/dL (2.4-3.5); Glucose 184 mg/dL (80-115); Potassium 4.2 mmol/L (3.5-5.1); Protein, Total 6.6 g/dL (5.8-8.1); Sodium 143 mmol/L (136-145)
[2018-03-29] MEDS: Pyridostigmine Bromide IR 60 MG TAB PO SCH ×3 (09:10→20:48)
[2018-03-29] MEDS: Mycophenolate 250 MG CAP PO SCH ×2 (14:54→20:47)
--- NOTE | 2018-03-29 15:23 | PDOC.PN ---
- Subjective Encounter Start Date: 03/29/18 Encounter Start Time: 08:20 Pt seen jamison followup re; elida. Reports rash still present, itching, stinging and burning at the same time. - Objective Resuscitation Status - Order Detail: 03/28/18 16:16 Resuscitation Status Routine Resuscitation Status: DNAR: NO Resuscitation Discussed with: d/w patient in room 23 ER MAR Reviewed: Yes Vital Signs & Weight: Vital Signs (12 hours) Temp Pulse Resp BP Pulse Ox 03/29/18 08:11 97.9 F 78 20 172/77 H 96 03/29/18 08:00 94 L 03/29/18 04:00 97.7 F 70 18 145/68 H 94 L Weight Admit Weight 451 lb Weight 451 lb I&O: 03/28/18 03/29/18 03/30/18 06:59 06:59 06:59 Intake Total 720 600 Balance 720 600 Result Diagrams: 03/29/18 07:09 03/29/18 07:09 Additional Labs: Accuchecks 03/29/18 03/29/18 11:38 05:41 POC Glucose 191 H 177 H labs reviewed by me Phys Exam - Physical Examination Morbid obesity HEENT: moist MMs, sclera anicteric, oral pharynx no lesions, 2+ tonsils Neck: no nodes, no JVD, supple, full ROM Respiratory: clear to auscultation bilateral Cardiovascular: RRR, no rub S1, S2 Gastrointestinal: soft, non-tender, no distention, positive bowel sounds Musculoskeletal: edema present Neurological: moves all 4 limbs Psychiatric: normal affect, A&O x 3 Deviation from normal: rash all over the body, maculopapular, nontender Dx/Plan (1) Rash Code(s): R21 - RASH AND OTHER NONSPECIFIC SKIN ERUPTION Status: Acute Comment: Etiology unclear. ? drug-induced. Pt is on steroids. ID consult pending. (2) COPD (chronic obstructive pulmonary disease) Status: Chronic Comment: stable (3) Diabetes mellitus Code(s): E11.9 - TYPE 2 DIABETES MELLITUS WITHOUT COMPLICATIONS Status: Chronic Comment: reasonable control (4) HTN (hypertension) Code(s): I10 - ESSENTIAL (PRIMARY) HYPERTENSION Status: Chronic Comment: Monitor vital signs and titrate antihypertensives as needed (5) BPH (benign prostatic hyperplasia) Code(s): N40.0 - BENIGN PROSTATIC HYPERPLASIA WITHOUT LOWER URINRY TRACT SYMP Status: Chronic Comment: stable (6) Myasthenia gravis Code(s): G70.00 - MYASTHENIA GRAVIS WITHOUT (ACUTE) EXACERBATION Status: Chronic Comment: stable - Plan * . Review of Systems - Review of Systems Constitutional: negative: fever, chills, sweats, weakness, malaise Respiratory: negative: Cough, Shortness of Breath, SOB with Excertion, Pleuritic Pain, Wheezing Cardiovascular: negative: chest pain, palpitations, orthopnea, paroxysmal nocturnal dyspnea, edema, light headedness Gastrointestinal: negative: Nausea, Vomiting, Abdominal Pain, Diarrhea, Constipation, Melena, Hematochezia Genitourinary: negative: Dysuria, Frequency, Incontinence, Hematuria, Retention Skin: Rash. negative: Lesions, Noe, Bruising - Medications/Allergies Allergies/Adverse Reactions: Allergies Allergy/AdvReac Type Severity Reaction Status Date / Time amoxicillin Allergy Verified 03/29/18 01:08 clavulanic acid Allergy Verified 03/29/18 01:08 [From Augmentin] clindamycin Allergy Verified 03/29/18 01:08 gatifloxacin [From Tequin] Allergy Verified 03/29/18 01:09 oseltamivir [From Tamiflu] Allergy Verified 03/29/18 01:09 Penicillins Allergy Verified 03/29/18 01:08 vancomycin Allergy Verified 03/29/18 01:08 Medications: Current Medications Acetaminophen (Tylenol) 650 mg PO Q4H PRN PRN Reason: Headache/Fever/Mild Pain (1-3) Acetaminophen/Codeine Phosphate (Tylenol #3) 1 tab PO Q6H PRN PRN Reason: Moderate to Severe Pain (6-10) Hydrocodone Bitart/Acetaminophen ([place] 5/325) 1 tab PO TID [facility] Last Admin: 03/29/18 14:43 Dose: 1 tab Cholestyramine Resin (Questran Light) 4 gm PO BID-[facility] Last Admin: 03/29/18 08:13 Dose: 4 gm Cyclobenzaprine HCl (Flexeril) 10 mg PO HS [facility] Last Admin: 03/28/18 22:58 Dose: 10 mg Dextrose/Water (Dextrose 50%) 25 gm SLOW IVP PRN PRN PRN Reason: Hypoglycemia Enoxaparin Sodium (Lovenox) 40 mg SC 0900 [facility] Last Admin: 03/29/18 08:13 Dose: 40 mg Famotidine (Pepcid) 20 mg PO BID [facility] Last Admin: 03/29/18 08:14 Dose: 20 mg Gabapentin (Neurontin) 100 mg PO TID [facility] Last Admin: 03/29/18 14:42 Dose: 100 mg Glucagon (Glucagon) 1 mg IM PRN PRN PRN Reason: Hypoglycemia Guaifenesin (Mucinex) 600 mg PO BID [facility] Last Admin: 03/29/18 08:14 Dose: 600 mg Guaifenesin/Dextromethorphan (Robitussin Dm) 15 ml PO Q4H PRN PRN Reason: Cough Dextrose/Water (D5w) 1,000 mls @ 0 mls/hr IV .Q0M PRN PRN Reason: Hypoglycemia Insulin Human Lispro (Humalog) 0 units SC .MODERATE SLIDING SC PRN PRN Reason: Moderate Correctional Scale Insulin Human Lispro (Humalog) 0 units SC .BEDTIME SLIDING SC PRN PRN Reason: Bedtime Correctional Scale Methylprednisolone Sodium Succinate (Solu-Medrol) 40 mg IVP Q6H [facility] Last Admin: 03/29/18 14:41 Dose: 40 mg Mycophenolate Mofetil (Cellcept) 500 mg PO BID [facility] Last Admin: 03/29/18 14:54 Dose: Not Given Pregabalin (Lyrica) 75 mg PO TID [facility] Last Admin: 03/29/18 14:42 Dose: 75 mg Pyridostigmine [place] (Mestinon) 30 mg PO TID [facility] Last Admin: 03/29/18 14:42 Dose: 30 mg Sertraline HCl (Zoloft) 50 mg PO DAILY [facility] Last Admin: 03/29/18 08:13 Dose: 50 mg Sterile Water (Bacteriostatic Water) 1 ml FS PRN PRN PRN Reason: RECONSTITUTION Last Admin: 03/29/18 14:41 Dose: 1 ml Tamsulosin HCl (Flomax) 0.4 mg PO DAILY [facility] Last Admin: 03/29/18 08:15 Dose: 0.4 mg
--- NOTE | 2018-03-29 16:52 | CON ---
DATE OF CONSULTATION: 03/29/2018 REASON FOR CONSULTATION: Skin rash. HISTORY OF PRESENT ILLNESS: Mr. Majano is a 67-year-old gentleman who has a history of obesity, myasthenia gravis, SANKET, and previously treated and cured hepatitis C, whom I had seen in the past for multiple visits for recurrent episodes of cellulitis in the lower extremities. The episode in 2016 was felt to be due to gouty arthritis and I have not seen the patient since. He has gained quite a bit of weight. [facility] had [facility] and he was admitted in September 2016 with diarrhea secondary to Cryptosporidium and deep vein thrombosis and then was admitted again at the end of January last year because of constipation requiring fecal disimpaction. On admission, he was complaining of flank pain and he did not have any fever or chills. The patient had been prescribed levofloxacin at the penitentiary for presumed urinary tract infection. The urinalysis during that admission actually did show normal WBCs in the urine, so there is no evidence of urine infection then. The urine cultures were no growth as well. He had a C. difficile test which was antigen positive and toxin positive in February 23, subsequently he was given Tamiflu for a concern with influenza, although it was not documented. The more recently Keflex was prescribed before cellulitis and he has now rapidly developed diffuse erythroderma. He is awake, alert, oriented, pleasant, no acute distress. Denies headaches. No visual symptoms, sore throat, odynophagia, or dysphagia. He has itching in the skin of the chest and abdomen. No dyspnea or abdominal pain. Some diarrhea. He does have abdominal cramps when he is having bowel movements, but not otherwise. No joint symptoms. PAST MEDICAL HISTORY: Morbid obesity, treated and cured hepatitis C, cardiomyopathy, sleep apnea, BPH, hypertension, myasthenia gravis, COPD, DVT, cellulitis in the lower extremities in the past. PAST SURGICAL HISTORY: Includes cholecystectomy, right knee replacement. SOCIAL HISTORY: He is a former smoker. No alcoholic beverage use. Used drugs intravenously many decades ago. ALLERGIES: AMOXICILLIN, CLINDAMYCIN, LEVAQUIN, PENICILLIN, TAMIFLU, AND LIKELY A CEPHALOSPORIN ALLERGY. PHYSICAL EXAMINATION: VITAL SIGNS: Current vital signs; T-max 98, blood pressure 170/77, pulse 78, respirations 20, O2 saturation 96%. SKIN: Shows a diffuse skin erythroderma chest, abdomen, appendicular structure of the skin. The patient has a peripheral IV access and he is voiding in the diaper. He is 451 pounds. HEENT: No lymphadenopathy. Ocular movements conjugate. Oral cavity with numerous missing teeth. Oral mucosa is normal without any blisters. NECK: Supple. No jugular vein distention. LUNGS: Symmetric. Clear breath sounds. S1 and S2. HEART: Diminished heart sounds. No murmurs. ABDOMEN: Quite prominent. Mild tenderness in the lateral aspect. Bowel sounds are somewhat increased. No bladder distention. EXTREMITIES: No joint inflammatory activity. He is able to move extremities. Plantar responses are indifferent. No clonus. NEUROLOGIC: He is oriented, follows commands. Good recollection of events. LABORATORY DATA: White cell count is 11,000 and now 12.5, hemoglobin 12, platelets 310, 80% neutrophils. Sodium 142, creatinine 0.82. Liver profile normal. CRP 2.3, albumin 3.7. The patient had a C. difficile test submitted with both toxin and antigen positive results. Two sets of blood cultures thus far no growth. ASSESSMENT AND PLAN: 1. Morbid obesity. 2. Prior episodes of cellulitis in the past. 3. Clostridium difficile colitis with recurrence. 4. Treated hepatitis C and cured. 5. Diffuse erythroderma. DISCUSSION: Most likely scenario is a cephalosporin hypersensitivity reaction. He does not have evidence of a more aggressive process and I do not think that we need to worry about progression to TEN. The C. diff will be treated with oral vancomycin as usual and I would recommend a tapering dose after since he is at high risk for recurrence and has already had one or two recurrences. Job ID: [id number]
[2018-03-29] MEDS: Cyclobenzaprine 10 MG TAB PO SCH (20:49)
[2018-03-29] MEDS: Fidaxomicin 200 MG TAB PO SCH (20:50)
[2018-03-29] MEDS: HumaLOG 300 UNITS/3 ML VIAL SC PRN (21:08)
[2018-03-30] MEDS: methylPREDNISolone Sod Succ 40 MG VIAL IVP SCH ×4 (03:21→21:50)
[2018-03-30] MEDS: Cholestyramine/Aspartame 4 gm Packet PO SCH ×2 (07:47→17:30)
[2018-03-30] MEDS: Enoxaparin Sodium 40 MG/0.4 ML SYRINGE SC SCH (07:48)
[2018-03-30] MEDS: Gabapentin 100 MG CAP PO SCH ×3 (07:49→21:48)
[2018-03-30] MEDS: Pregabalin 75 MG CAP PO SCH ×3 (07:50→21:49)
[2018-03-30] MEDS: Famotidine 20 MG TAB PO SCH ×2 (07:50→21:47)
[2018-03-30] MEDS: Pyridostigmine Bromide IR 60 MG TAB PO SCH ×3 (07:50→21:48)
[2018-03-30] MEDS: Tamsulosin HCl 0.4 MG CAP PO SCH (07:50)
[2018-03-30] MEDS: Mycophenolate 250 MG CAP PO SCH ×2 (07:50→21:48)
[2018-03-30] MEDS: guaiFENesin ER 600 MG TAB PO SCH ×2 (07:50→21:48)
[2018-03-30] MEDS: HYDROcodone/Acetaminophen 5/325 mg Tablet PO SCH ×3 (07:51→21:49)
[2018-03-30] MEDS: Bacteriostatic Water 30 ML VIAL FS PRN ×2 (07:59→21:50)
[2018-03-30] MEDS: Fidaxomicin 200 MG TAB PO SCH ×2 (10:05→21:47)
--- NOTE | 2018-03-30 12:13 | PDOC.PN ---
- Subjective Encounter Start Date: 03/30/18 Encounter Start Time: 08:40 Pt seen for followup re: rash. Says he feels better. - Objective Resuscitation Status - Order Detail: 03/28/18 16:16 Resuscitation Status Routine Resuscitation Status: DNAR: NO Resuscitation Discussed with: d/w patient in room 23 ER Vital Signs & Weight: Vital Signs (12 hours) Temp Pulse Resp BP BP Pulse Ox 03/30/18 08:00 97.7 F 57 L 20 149/76 H 96 03/30/18 04:00 98.4 F 53 L 20 144/70 H 97 Weight Admit Weight 451 lb Weight 451 lb I&O: 03/29/18 03/30/18 03/31/18 06:59 06:59 06:59 Intake Total 720 1150 240 Balance 720 1150 240 Result Diagrams: 03/29/18 07:09 03/29/18 07:09 Additional Labs: Accuchecks 03/30/18 03/30/18 03/29/18 11:35 04:42 20:28 POC Glucose 181 H 162 H 217 H 03/29/18 16:42 POC Glucose 199 H Phys Exam - Physical Examination Morbid obesity HEENT: moist MMs Neck: supple Respiratory: clear to auscultation bilateral Cardiovascular: RRR Gastrointestinal: soft Musculoskeletal: edema present Neurological: moves all 4 limbs Psychiatric: normal affect, A&O x 3 Deviation from normal: rash all over trunk Dx/Plan (1) Rash Code(s): R21 - RASH AND OTHER NONSPECIFIC SKIN ERUPTION Status: Acute Comment: rash from cephalosporin allergy, improving with steroids (2) Clostridium difficile diarrhea Code(s): A04.72 - ENTEROCOLITIS D/T CLOSTRIDIUM DIFFICILE, NOT SPCF RECUR Status: Acute Comment: started on fidaxomicin (3) COPD (chronic obstructive pulmonary disease) Status: Chronic Comment: stable (4) Diabetes mellitus Code(s): E11.9 - TYPE 2 DIABETES MELLITUS WITHOUT COMPLICATIONS Status: Chronic Comment: reasonably controlled (5) HTN (hypertension) Code(s): I10 - ESSENTIAL (PRIMARY) HYPERTENSION Status: Chronic Comment: Improving control (6) BPH (benign prostatic hyperplasia) Code(s): N40.0 - BENIGN PROSTATIC HYPERPLASIA WITHOUT LOWER URINRY TRACT SYMP Status: Chronic Comment: stable (7) Myasthenia gravis Code(s): G70.00 - MYASTHENIA GRAVIS WITHOUT (ACUTE) EXACERBATION Status: Chronic Comment: stable - Plan * . Review of Systems - Review of Systems Respiratory: negative: Cough, Shortness of Breath, Hemoptysis, SOB with Excertion, Pleuritic Pain, Wheezing Cardiovascular: negative: chest pain, palpitations, orthopnea, paroxysmal nocturnal dyspnea, edema, light headedness Skin: Rash - Medications/Allergies Allergies/Adverse Reactions: Allergies Allergy/AdvReac Type Severity Reaction Status Date / Time amoxicillin Allergy Verified 03/29/18 01:08 clavulanic acid Allergy Verified 03/29/18 01:08 [From Augmentin] clindamycin Allergy Verified 03/29/18 01:08 gatifloxacin [From Tequin] Allergy Verified 03/29/18 01:09 oseltamivir [From Tamiflu] Allergy Verified 03/29/18 01:09 Penicillins Allergy Verified 03/29/18 01:08 vancomycin Allergy Verified 03/29/18 01:08 Medications: Current Medications Acetaminophen (Tylenol) 650 mg PO Q4H PRN PRN Reason: Headache/Fever/Mild Pain (1-3) Acetaminophen/Codeine Phosphate (Tylenol #3) 1 tab PO Q6H PRN PRN Reason: Moderate to Severe Pain (6-10) Hydrocodone Bitart/Acetaminophen ([place] 5/325) 1 tab PO TID [facility] Last Admin: 03/30/18 07:51 Dose: 1 tab Cholestyramine Resin (Questran Light) 4 gm PO BID-[facility] Last Admin: 03/30/18 07:47 Dose: Not Given Cyclobenzaprine HCl (Flexeril) 10 mg PO HS [facility] Last Admin: 03/29/18 20:49 Dose: 10 mg Dextrose/Water (Dextrose 50%) 25 gm SLOW IVP PRN PRN PRN Reason: Hypoglycemia Enoxaparin Sodium (Lovenox) 40 mg SC 0900 [facility] Last Admin: 03/30/18 07:48 Dose: 40 mg Famotidine (Pepcid) 20 mg PO BID [facility] Last Admin: 03/30/18 07:50 Dose: 20 mg Fidaxomicin (Dificid) 200 mg PO BID [facility] Last Admin: 03/30/18 10:05 Dose: 200 mg Gabapentin (Neurontin) 100 mg PO TID [facility] Last Admin: 03/30/18 07:49 Dose: 100 mg Glucagon (Glucagon) 1 mg IM PRN PRN PRN Reason: Hypoglycemia Guaifenesin (Mucinex) 600 mg PO BID [facility] Last Admin: 03/30/18 07:50 Dose: 600 mg Guaifenesin/Dextromethorphan (Robitussin Dm) 15 ml PO Q4H PRN PRN Reason: Cough Dextrose/Water (D5w) 1,000 mls @ 0 mls/hr IV .Q0M PRN PRN Reason: Hypoglycemia Insulin Human Lispro (Humalog) 0 units SC .MODERATE SLIDING SC PRN PRN Reason: Moderate Correctional Scale Insulin Human Lispro (Humalog) 0 units SC .BEDTIME SLIDING SC PRN PRN Reason: Bedtime Correctional Scale Last Admin: 03/29/18 21:08 Dose: 2 unit Methylprednisolone Sodium Succinate (Solu-Medrol) 40 mg IVP Q6H [facility] Last Admin: 03/30/18 07:58 Dose: 40 mg Mycophenolate Mofetil (Cellcept) 500 mg PO BID [facility] Last Admin: 03/30/18 07:50 Dose: 500 mg Pregabalin (Lyrica) 75 mg PO TID [facility] Last Admin: 03/30/18 07:50 Dose: 75 mg Pyridostigmine [place] (Mestinon) 30 mg PO TID [facility] Last Admin: 03/30/18 07:50 Dose: 30 mg Sertraline HCl (Zoloft) 50 mg PO DAILY [facility] Last Admin: 03/30/18 07:49 Dose: 50 mg Sterile Water (Bacteriostatic Water) 1 ml FS PRN PRN PRN Reason: RECONSTITUTION Last Admin: 03/30/18 07:59 Dose: 1 ml Tamsulosin HCl (Flomax) 0.4 mg PO DAILY [facility] Last Admin: 03/30/18 07:50 Dose: 0.4 mg
[2018-03-30] MEDS: HumaLOG 300 UNITS/3 ML VIAL SC PRN (21:47)
[2018-03-30] MEDS: Cyclobenzaprine 10 MG TAB PO SCH (21:47)
[2018-03-31] MEDS: methylPREDNISolone Sod Succ 40 MG VIAL IVP SCH (03:48)
[2018-03-31] MEDS: Bacteriostatic Water 30 ML VIAL FS PRN (03:48)
[2018-03-31] MEDS: HumaLOG 300 UNITS/3 ML VIAL SC PRN ×3 (05:29→17:44)
[2018-03-31] MEDS: Famotidine 20 MG TAB PO SCH ×2 (09:05→21:47)
[2018-03-31] MEDS: Cholestyramine/Aspartame 4 gm Packet PO SCH ×2 (09:05→17:56)
[2018-03-31] MEDS: Enoxaparin Sodium 40 MG/0.4 ML SYRINGE SC SCH (09:05)
[2018-03-31] MEDS: HYDROcodone/Acetaminophen 5/325 mg Tablet PO SCH ×3 (09:06→21:48)
[2018-03-31] MEDS: Fidaxomicin 200 MG TAB PO SCH ×2 (09:06→21:47)
[2018-03-31] MEDS: Gabapentin 100 MG CAP PO SCH ×3 (09:06→21:48)
[2018-03-31] MEDS: guaiFENesin ER 600 MG TAB PO SCH ×2 (09:06→21:48)
[2018-03-31] MEDS: Pregabalin 75 MG CAP PO SCH ×3 (09:07→21:48)
[2018-03-31] MEDS: Pyridostigmine Bromide IR 60 MG TAB PO SCH ×3 (09:07→21:45)
[2018-03-31] MEDS: Tamsulosin HCl 0.4 MG CAP PO SCH (09:08)
[2018-03-31] MEDS: Mycophenolate 250 MG CAP PO SCH ×2 (09:09→21:44)
[2018-03-31] MEDS: Saccharomyces boulardii 250 MG CAP PO SCH (09:09)
[2018-03-31] MEDS ORDERED: predniSONE 20 MG TAB PO SCH (09:45)
[2018-03-31] MEDS ORDERED: diphenhydrAMINE 25 MG CAP PO PRN (12:50)
--- NOTE | 2018-03-31 12:53 | PDOC.PN ---
- Subjective Encounter Start Date: 03/31/18 Encounter Start Time: 08:20 Pt seen for followup re: rash. feels better. - Objective Resuscitation Status - Order Detail: 03/28/18 16:16 Resuscitation Status Routine Resuscitation Status: DNAR: NO Resuscitation Discussed with: d/w patient in room 23 ER MAR Reviewed: Yes Vital Signs & Weight: Vital Signs (12 hours) Temp Pulse Resp BP Pulse Ox 03/31/18 12:14 69 03/31/18 12:00 97.7 F 20 167/82 H 97 03/31/18 08:00 97 03/31/18 07:39 97.6 F 60 20 174/84 H 97 03/31/18 00:50 65 20 96 Weight Admit Weight 451 lb Weight 451 lb I&O: 03/30/18 03/31/18 04/01/18 06:59 06:59 06:59 Intake Total 1150 1822 Balance 1150 1822 Result Diagrams: 03/29/18 07:09 03/29/18 07:09 Additional Labs: Accuchecks 03/31/18 03/31/18 03/30/18 11:37 05:04 19:51 POC Glucose 171 H 166 H 221 H 03/30/18 15:54 POC Glucose 170 H labs reviewed by me Phys Exam - Physical Examination Morbidly obese HEENT: moist MMs Neck: supple Respiratory: clear to auscultation bilateral Cardiovascular: RRR Gastrointestinal: soft Neurological: moves all 4 limbs Psychiatric: normal affect Dx/Plan (1) Rash Code(s): R21 - RASH AND OTHER NONSPECIFIC SKIN ERUPTION Status: Acute Comment: improving, change steroids to oral (2) Clostridium difficile diarrhea Code(s): A04.72 - ENTEROCOLITIS D/T CLOSTRIDIUM DIFFICILE, NOT SPCF RECUR Status: Acute Comment: continue fidaxomicin (3) COPD (chronic obstructive pulmonary disease) Status: Chronic Comment: stable (4) Diabetes mellitus Code(s): E11.9 - TYPE 2 DIABETES MELLITUS WITHOUT COMPLICATIONS Status: Chronic Comment: controlled (5) HTN (hypertension) Code(s): I10 - ESSENTIAL (PRIMARY) HYPERTENSION Status: Chronic Comment: Improved control (6) BPH (benign prostatic hyperplasia) Code(s): N40.0 - BENIGN PROSTATIC HYPERPLASIA WITHOUT LOWER URINRY TRACT SYMP Status: Chronic Comment: stable (7) Myasthenia gravis Code(s): G70.00 - MYASTHENIA GRAVIS WITHOUT (ACUTE) EXACERBATION Status: Chronic Comment: stable - Plan * . Review of Systems - Review of Systems Cardiovascular: negative: chest pain, palpitations, orthopnea, paroxysmal nocturnal dyspnea, edema, light headedness Gastrointestinal: negative: Nausea, Vomiting, Abdominal Pain, Diarrhea, Constipation, Melena, Hematochezia Skin: Rash - Medications/Allergies Allergies/Adverse Reactions: Allergies Allergy/AdvReac Type Severity Reaction Status Date / Time amoxicillin Allergy Verified 03/29/18 01:08 clavulanic acid Allergy Verified 03/29/18 01:08 [From Augmentin] clindamycin Allergy Verified 03/29/18 01:08 gatifloxacin [From Tequin] Allergy Verified 03/29/18 01:09 oseltamivir [From Tamiflu] Allergy Verified 03/29/18 01:09 Penicillins Allergy Verified 03/29/18 01:08 vancomycin Allergy Verified 03/29/18 01:08 Medications: Current Medications Acetaminophen (Tylenol) 650 mg PO Q4H PRN PRN Reason: Headache/Fever/Mild Pain (1-3) Acetaminophen/Codeine Phosphate (Tylenol #3) 1 tab PO Q6H PRN PRN Reason: Moderate to Severe Pain (6-10) Hydrocodone Bitart/Acetaminophen ([place] 5/325) 1 tab PO TID [facility] Last Admin: 03/31/18 09:06 Dose: 1 tab Cholestyramine Resin (Questran Light) 4 gm PO BID[facility] Last Admin: 03/31/18 09:05 Dose: 4 gm Cyclobenzaprine HCl (Flexeril) 10 mg PO [facility] Last Admin: 03/30/18 21:47 Dose: 10 mg Dextrose/Water (Dextrose 50%) 25 gm SLOW IVP PRN PRN PRN Reason: Hypoglycemia Enoxaparin Sodium (Lovenox) 40 mg SC 0900 [facility] Last Admin: 03/31/18 09:05 Dose: 40 mg Famotidine (Pepcid) 20 mg PO BID [facility] Last Admin: 03/31/18 09:05 Dose: 20 mg Fidaxomicin (Dificid) 200 mg PO BID [facility] Last Admin: 03/31/18 09:06 Dose: 200 mg Gabapentin (Neurontin) 100 mg PO TID [facility] Last Admin: 03/31/18 09:06 Dose: 100 mg Glucagon (Glucagon) 1 mg IM PRN PRN PRN Reason: Hypoglycemia Guaifenesin (Mucinex) 600 mg PO BID [facility] Last Admin: 03/31/18 09:06 Dose: 600 mg Guaifenesin/Dextromethorphan (Robitussin Dm) 15 ml PO Q4H PRN PRN Reason: Cough Dextrose/Water (D5w) 1,000 mls @ 0 mls/hr IV .Q0M PRN PRN Reason: Hypoglycemia Insulin Human Lispro (Humalog) 0 units SC .MODERATE SLIDING SC PRN PRN Reason: Moderate [facility] Last Admin: 03/31/18 12:15 Dose: 2 unit Insulin Human Lispro (Humalog) 0 units SC .BEDTIME SLIDING SC PRN PRN Reason: Bedtime Correctional Scale Last Admin: 03/30/18 21:47 Dose: 2 unit Mycophenolate Mofetil (Cellcept) 500 mg PO BID [facility] Last Admin: 03/31/18 09:09 Dose: 500 mg Prednisone (Prednisone) 40 mg PO [facility] Pregabalin (Lyrica) 75 mg PO TID [facility] Last Admin: 03/31/18 09:07 Dose: 75 mg Pyridostigmine [place] (Mestinon) 30 mg PO TID [facility] Last Admin: 03/31/18 09:07 Dose: 30 mg Saccharomyces Boulardii (Florastor) 250 mg PO DAILY [facility] Last Admin: 03/31/18 09:09 Dose: 250 mg Sertraline HCl (Zoloft) 50 mg PO DAILY [facility] Last Admin: 03/31/18 09:08 Dose: 50 mg Tamsulosin HCl (Flomax) 0.4 mg PO DAILY [facility] Last Admin: 03/31/18 09:08 Dose: 0.4 mg
[2018-03-31 13:23] LABS: #Eosinphils 0.1 thou/uL (0.0-0.7); #Lymphocytes 1.2 thou/uL (1.20-3.40); #Neutrophils 11.9 thou/uL (1.40-6.50); %Eosinophils 0.4 % (0.0-10.0); %Lymphocytes 8.4 % (21.0-51.0); %Monocytes 6.8 % (0.0-10.0); %Neutrophils 84.4 % (42.0-75.0); Hemoglobin 11.6 g/dL (14.0-18.0); Mean Corpuscular HGB CONC 31.4 g/dL (32.0-36.0); Mean Corpuscular Hemoglobin 28.3 pg (27.0-31.0); Mean Corpuscular Volume 90.1 fL (78.0-98.0); Mean Platelet Volume 7.3 fL (7.4-10.4); Platelet Count 319 thou/uL (130-400); White Blood Cell (WBC) Count 14.1 thou/uL (4.8-10.8)
[2018-03-31 13:43] LABS: Anion Gap 16 mmol/L (10-20); BUN (Urea Nitrogen) 28 mg/dL (8.4-25.7); Calc. Creatinine Clearance 263 mL/min (70-130); Calcium 8.8 mg/dL (7.8-10.44); Carbon Dioxide 26 mmol/L (23-31); Chloride 101 mmol/L (98-107); Estimated GFR-MDRD Greater than 90; Glucose 189 mg/dL (80-115); Potassium 3.9 mmol/L (3.5-5.1); Sodium 139 mmol/L (136-145)
[2018-03-31 13:51] LABS: Prothrombin Time 22.6 SEC (12.0-14.7)
[2018-03-31] MEDS: Warfarin Sodium 5 MG TAB PO SCH (17:44)
[2018-03-31] MEDS ORDERED: Carvedilol 25 MG TAB PO SCH (21:00)
[2018-03-31] MEDS ORDERED: Loratadine 10 MG TAB PO SCH (21:00)
[2018-03-31] MEDS ORDERED: MENTHOL 7.5 MG PO PRN (21:00)
[2018-03-31] MEDS: Fluticasone Propionate Nasal Spray 16 gm Bottle NASAL SCH (21:45)
[2018-03-31] MEDS: Cyclobenzaprine 10 MG TAB PO SCH (21:46)
[2018-03-31] MEDS: Nystatin Powder 15 GM BOT TOP SCH (22:17)
[2018-04-01 07:39] LABS: #Eosinphils 0.1 thou/uL (0.0-0.7); #Lymphocytes 1.5 thou/uL (1.20-3.40); #Monocytes 1.5 thou/uL (0.11-0.59); #Neutrophils 8.4 thou/uL (1.40-6.50); %Basophils 0.1 % (0.0-1.0); %Eosinophils 0.9 % (0.0-10.0); %Lymphocytes 13.1 % (21.0-51.0); %Monocytes 13.1 % (0.0-10.0); %Neutrophils 72.7 % (42.0-75.0); Hemoglobin 11.6 g/dL (14.0-18.0); Mean Corpuscular HGB CONC 31.9 g/dL (32.0-36.0); Mean Corpuscular Hemoglobin 28.9 pg (27.0-31.0); Mean Corpuscular Volume 90.7 fL (78.0-98.0); Mean Platelet Volume 7.4 fL (7.4-10.4); Platelet Count 297 thou/uL (130-400); RBC Distribution Width 14.7 % (11.5-14.5); Red Blood Cell (RBC) Count 4.02 mill/uL (4.70-6.10); White Blood Cell (WBC) Count 11.5 thou/uL (4.8-10.8)
[2018-04-01 08:00] LABS: Anion Gap 11 mmol/L (10-20); BUN (Urea Nitrogen) 25 mg/dL (8.4-25.7); Calc. Creatinine Clearance 284 mL/min (70-130); Calcium 8.9 mg/dL (7.8-10.44); Carbon Dioxide 31 mmol/L (23-31); Chloride 103 mmol/L (98-107); Estimated GFR-MDRD Greater than 90; Glucose 110 mg/dL (80-115); Potassium 3.8 mmol/L (3.5-5.1); Sodium 141 mmol/L (136-145)
[2018-04-01] MEDS ORDERED: predniSONE 20 MG TAB PO SCH ×2 (08:00)
[2018-04-01] MEDS ORDERED: Spironolactone 25 MG TAB PO SCH (09:00)
[2018-04-01] MEDS ORDERED: Allopurinol 300 MG TAB PO SCH (09:00)
[2018-04-01] MEDS ORDERED: Torsemide 100 MG TAB PO SCH (09:00)
[2018-04-01] MEDS ORDERED: Carvedilol 25 MG TAB PO SCH (09:00)
[2018-04-01] MEDS ORDERED: Warfarin Sodium 5 MG TAB PO SCH (09:00)
[2018-04-01] MEDS: Fidaxomicin 200 MG TAB PO SCH (09:20)
[2018-04-01] MEDS: Gabapentin 100 MG CAP PO SCH ×2 (09:20→14:46)
[2018-04-01] MEDS: Saccharomyces boulardii 250 MG CAP PO SCH (09:21)
[2018-04-01] MEDS: Pregabalin 75 MG CAP PO SCH ×2 (09:21→14:46)
[2018-04-01] MEDS: HYDROcodone/Acetaminophen 5/325 mg Tablet PO SCH ×2 (09:22→14:46)
[2018-04-01] MEDS: guaiFENesin ER 600 MG TAB PO SCH (09:23)
[2018-04-01] MEDS: Tamsulosin HCl 0.4 MG CAP PO SCH (09:23)
[2018-04-01] MEDS: Famotidine 20 MG TAB PO SCH (09:24)
[2018-04-01] MEDS: Mycophenolate 250 MG CAP PO SCH (09:33)
[2018-04-01] MEDS: Pyridostigmine Bromide IR 60 MG TAB PO SCH ×2 (09:34→14:45)
[2018-04-01] MEDS: Nystatin Powder 15 GM BOT TOP SCH (09:35)
[2018-04-01] MEDS: Fluticasone Propionate Nasal Spray 16 gm Bottle NASAL SCH (09:35)
[2018-04-01] MEDS: Enoxaparin Sodium 40 MG/0.4 ML SYRINGE SC SCH (09:35)
[2018-04-01] MEDS: Cholestyramine/Aspartame 4 gm Packet PO SCH (11:20)
[2018-04-01 11:56] VITALS: BP 154/77; TEMP 97.6
--- NOTE | 2018-04-01 14:19 | PRG ---
DATE OF SERVICE: 04/01/2018 SUBJECTIVE: Mr. Majano is feeling better. The skin is much improved. He is having soft stools, but not liquid anymore. No abdominal cramps. No vomiting. OBJECTIVE: VITAL SIGNS: His vital signs are normal. He is afebrile. Systolic blood pressure slightly elevated. SKIN: Marked improvement of the erythroderma. HEENT: Ocular movements conjugate. Oral cavity normal. LUNGS: Clear. HEART: S1 and S2, regular rate. ABDOMEN: Soft, not distended or tender. LABORATORY DATA: White cell count 11.5, hemoglobin 11.6, platelets 297. Sodium 141, creatinine 0.75, and the C. diff positive as noted before. ASSESSMENT AND DISCUSSION: Morbid obesity with hypersensitivity reactions to cephalosporins and clostridium difficile colitis, this is the first recurrence, second episode. The patient to continue on fidaxomicin for a total of 2 weeks. After that, if there is recurrence, he will have to be treated again and then referred for fecal transplantation. The skin rash is resolving and things should pose any problems going forward. Job ID: [id number]
[2018-04-01] MEDS: Warfarin Sodium 5 MG TAB PO SCH (14:46)
--- NOTE | 2018-04-01 17:52 | DIS ---
DATE OF ADMISSION: 03/28/2018 DATE OF DISCHARGE: 04/01/2018 PRIMARY CARE PROVIDER: Dr. Ozzy Mishra. DISCHARGE DIAGNOSES: 1. Clostridium difficile diarrhea, recurrent. 2. Medication-induced rash. CONDITION OF PATIENT ON THE DAY OF DISCHARGE: Stable. I assessed Mr. Majano on the day of discharge. He denies any chest pain or shortness of breath. Vital signs are stable. S1 and S2 are heard, regular. Lungs are clear to auscultation bilaterally. Rash is improving. DISCHARGE MEDICATIONS: In addition to pre-admission home medications as dictated by Dr. Ricks in his History and Physical note, dated March 28, 2018, he is being discharged on fidaxomicin 200 mg 2 times a day for a total of 14 days. HOSPITAL COURSE: Mr. Majano is a pleasant 67-year-old gentleman who was admitted to [facility] on March 28, 2018, for rash. Please refer to Dr. Ricks's History and Physical note, dated March 28, 2018, for further details. He was seen by Infectious Diseases Service, Dr. Silva. It was felt that rash was secondary to a cephalosporin allergy. He also had diarrhea. Stool Clostridium difficile toxin test was positive. Antigen was positive as well. He has been started on fidaxomicin 200 mg 2 times a day. His warfarin was initially held, but was subsequently resumed. This will need to be continued. On the day of discharge, Mr. Majano has white count 11,500, hemoglobin 11.6, platelet count 297,000, normal electrolytes and normal creatinine. Many thanks for allowing me to participate in your patient's care. Please feel free to contact me with any questions or concerns. DISCHARGE DESTINATION: [facility], from where the patient was admitted to the hospital. TIME SPENT: Time spent coordinating this discharge, 31 minutes. Job ID: [id number]
== END 2018-04-01 14:48 | DRG 607 ==
LOC: ERS 13:17 → T4-A 15:40
PROVIDERS: ADMIT Internal Medicine; ATTEND Internal Medicine
DX: L27.0 Generalized skin eruption due to drugs and medicaments taken internally (principal); A04.71 Enterocolitis due to Clostridium difficile, recurrent; Z68.44 Body mass index [BMI] 60.0-69.9, adult; I42.9 Cardiomyopathy, unspecified; I10 Essential (primary) hypertension; G47.33 Obstructive sleep apnea (adult) (pediatric); N40.0 Benign prostatic hyperplasia without lower urinary tract symptoms; E66.01 Morbid (severe) obesity due to excess calories; Z66 Do not resuscitate; J44.9 Chronic obstructive pulmonary disease, unspecified; E11.9 Type 2 diabetes mellitus without complications; G70.00 Myasthenia gravis without (acute) exacerbation; T36.1X5A Adverse effect of cephalosporins and other beta-lactam antibiotics, initial encounter; Z74.01 Bed confinement status; Z86.718 Personal history of other venous thrombosis and embolism; Z87.891 Personal history of nicotine dependence; Z88.1 Allergy status to other antibiotic agents; Z88.0 Allergy status to penicillin; Z88.8 Allergy status to other drugs, medicaments and biological substances; Z79.01 Long term (current) use of anticoagulants; Z79.52 Long term (current) use of systemic steroids; Z79.899 Other long term (current) drug therapy; Y92.129 Unspecified place in nursing home as the place of occurrence of the external cause
CPT/HCPCS: 36415; 36416; 80048; 80053; 85025; 85610; 85652; 86140; 87040; 87045; 87046; 87081; 87086; 87324; 87449; 87493; 87899; 94660; 96374; 96375; J1200; J1650; J2920; J2930; J7517; Q0163; S0028

== ENCOUNTER 2019-04-19 14:21 | Inpatient (IN) | payer MEDICARE, MEDICAID ==
[2019-04-19 14:59] LABS: #Eosinphils 0.3 thou/uL (0.0-0.7); #Lymphocytes 1.9 thou/uL (1.20-3.40); #Monocytes 1.4 thou/uL (0.11-0.59); #Neutrophils 7.4 thou/uL (1.40-6.50); %Basophils 0.2 % (0.0-1.0); %Eosinophils 2.6 % (0.0-10.0); %Lymphocytes 17.3 % (21.0-51.0); %Monocytes 12.5 % (0.0-10.0); %Neutrophils 67.4 % (42.0-75.0); Hemoglobin 10.4 g/dL (14.0-18.0); Mean Corpuscular HGB CONC 33.2 g/dL (32.0-36.0); Mean Corpuscular Hemoglobin 31.4 pg (27.0-31.0); Mean Corpuscular Volume 94.7 fL (78.0-98.0); Mean Platelet Volume 8.3 fL (7.4-10.4); Platelet Count 207 thou/uL (130-400); RBC Distribution Width 15.1 % (11.5-14.5); White Blood Cell (WBC) Count 10.9 thou/uL (4.8-10.8)
--- NOTE | 2019-04-19 15:12 | RAD ---
EXAM: XR Chest 1 View Portable PROVIDED CLINICAL HISTORY: Fever COMPARISON: 02/11/2018 FINDINGS: Examination is markedly limited by patient body habitus. The cardiac silhouette appears enlarged. Med iastinal silhouette is accentuated by rotation. Possible parenchymal opacity at the lateral left lung base versus overlapping soft tissues. No gross evidence for pleural fluid or pneumothorax limita tions due to the supine nature the study.. IMPRESSION: Limited study with possible left basilar parenchymal opacity.
[2019-04-19 15:21] LABS: Albumin 3.4 g/dL (3.4-4.8); Anion Gap 14 mmol/L (10-20); BUN (Urea Nitrogen) 50 mg/dL (8.4-25.7); Bilirubin, Total 0.5 mg/dL (0.2-1.2); Calc. Creatinine Clearance 0 mL/min (70-130); Calcium 8.9 mg/dL (7.8-10.44); Carbon Dioxide 29 mmol/L (23-31); Chloride 95 mmol/L (98-107); Estimated GFR-MDRD 24; Glucose 117 mg/dL (80-115); Potassium 4.7 mmol/L (3.5-5.1); Protein, Total 5.5 g/dL (5.8-8.1); Sodium 133 mmol/L (136-145)
[2019-04-19 15:22] LABS: ALT (SGPT) 14 U/L (8-55); AST (SGOT) 19 U/L (5-34); Alkaline Phosphatase 48 U/L (40-110); Globulin 2.1 g/dL (2.4-3.5)
[2019-04-19] MEDS ORDERED: Fentanyl 100 MCG/2 ML VIAL ONE ×2 (15:22→18:01)
[2019-04-19] MEDS ORDERED: diphenhydrAMINE 50 MG/ML VIAL ONE (15:34)
[2019-04-19] MEDS ORDERED: Cefepime 2 GM VIAL ONE (15:34)
[2019-04-19] MEDS ORDERED: Norepinephrine 8 MG/0.9% NS 250 ML ONE (16:06)
[2019-04-19] MEDS ORDERED: Acetaminophen 325 MG TAB PO PRN ×2 (18:58→19:05)
[2019-04-19] MEDS ORDERED: Ondansetron PF 4 MG/2 ML Vial IVP PRN ×2 (18:58→19:05)
[2019-04-19] MEDS ORDERED: Ondansetron ODT 4 MG TAB SL PRN (18:58)
[2019-04-19] MEDS ORDERED: Guaifenesin DM 100-10/5 ML UDCUP PO PRN (19:05)
[2019-04-19] MEDS ORDERED: Cefepime 2 GM VIAL IVPB SCH (19:05)
[2019-04-19] MEDS ORDERED: Fentanyl 100 MCG/2 ML VIAL SLOW IVP PRN (19:05)
[2019-04-19] MEDS ORDERED: diphenhydrAMINE 50 MG/ML VIAL IVP PRN (19:05)
[2019-04-19] MEDS ORDERED: Norepinephrine 8 MG/0.9% NS 250 ML IVPB SCH (19:05)
[2019-04-19] MEDS ORDERED: Acetaminophen 650 MG Suppository PR PRN (19:05)
[2019-04-19] MEDS ORDERED: Senokot S 8.6-50 MG TAB PO PRN (19:05)
[2019-04-19] MEDS ORDERED: Loratadine 10 MG TAB PO PRN (19:05)
[2019-04-19] MEDS ORDERED: Ondansetron ODT 4 MG TAB PO PRN (19:05)
[2019-04-19] MEDS ORDERED: Pharmacy to RENALLY ADJUST CEFEPIME IVPB PRN (19:25)
[2019-04-19 19:46] VITALS: BMI 69.2
[2019-04-19 19:59] LABS: CKMB 0.5 ng/mL (0-6.6)
[2019-04-19] MEDS: Cefepime 2 GM in Sodium Chloride 0.9% 100 ML IVPB SCH (20:16)
[2019-04-19] MEDS: Sodium Chloride 0.9% 1,000 ML IV SCH (20:18)
[2019-04-19] MEDS: HYDROcodone/Acetaminophen 5/325 mg Tablet PO SCH (20:20)
[2019-04-19] MEDS: Pregabalin 75 MG CAP PO SCH (20:20)
[2019-04-19] MEDS: Famotidine/PF 20 mg/2ml Vial SLOW IVP SCH (20:21)
[2019-04-19] MEDS: Heparin 5,000 UNITS/ML VIAL SC SCH (20:21)
[2019-04-19] MEDS: Pyridostigmine Bromide IR 60 MG TAB PO SCH (20:21)
[2019-04-19] MEDS: Tamsulosin HCl 0.4 MG CAP PO SCH (20:21)
[2019-04-19] MEDS: Mycophenolate 250 MG CAP PO SCH (20:23)
--- NOTE | 2019-04-19 20:38 | HP ---
PRIMARY CARE PHYSICIAN: Ozzy Mishra. CHIEF COMPLAINT: Fever, low blood pressure, and confusion. HISTORY OF PRESENT ILLNESS: This is a 69-year-old white male with a known history of extreme morbid obesity and hypoventilation syndrome, basically bedbound in the intermediate now, also with myasthenia gravis and sees a subsurface augmentee operator in [place], and diastolic congestive heart failure. He presents with a reported history of low-grade fevers, not really above 100 and some mild cough at the intermediate. He was sent to [facility] Emergency Room about a week ago and was noted to have some lower blood pressures. It usually runs in the 130s to 140 systolic. They treated him with Levaquin and then sent him back to the intermediate with a 5-day course. He completed that course. He is not certain if he might have had a little bit better, but has gotten worse since then, still just having some mild nonproductive cough, but having chills and reporting fevers, he says 99.9 is a fever for him and having low blood pressures. Eventually, the intermediate sent him back to the emergency room here. In the ER, he had systolic blood pressures down into the 70s and were persistent. They gave him 30 mL/kg fluid bolus and then started him on some Levophed. Blood pressures are now doing much better. He also was in significant pain when he got here that is much better after some fentanyl they gave him. He was given a dose of IV Levaquin and then a dose of cefepime after pre-injury treated with Benadryl. Of note, the patient reports allergies to basically every antibiotic and usually gets rashes from them. He has not had any respiratory distress from any of them he remembers, most recent was I believe some Keflex sometime one or two years ago, which causes a rash, but may have also been the Tamiflu is on at the same time. The patient has not had any reaction to the cefepime, he tolerate it well. They are now titrating down the Levophed, it is down to 3 mcg at this time with blood pressures in the 120s. The patient does not have any other specific complaints right now except for pain in his bottom and back, which is due to his obesity and being on the [facility]. REVIEW OF SYSTEMS: CONSTITUTIONAL: See HPI. EYES: He is blind in the right eye. He is having worsening vision in the left from cataracts. ENT: He has had some nasal congestion, some mild sore throat. CARDIOVASCULAR: He has had some chest pains left-sided on and off for the last 3 weeks, none currently. These are squeezing pains not been seen for at the hospital. No racing heart. PULMONARY: Mild cough. No shortness of breath. He has had some wheezing. GASTROINTESTINAL: No abdominal pain. No nausea or vomiting. No diarrhea or constipation. GENITOURINARY: No dysuria or hematuria. He is incontinent and uses a diaper at the intermediate. MUSCULOSKELETAL: He has chronic musculoskeletal complaints in most of his joints, in his back, in his bottom. These are worsened by the hospital [facility]. SKIN: He has noted some typical redness around the sides of his abdomen, where it gets edematous. There are also some red spots on the left side of his abdomen more recently. NEUROLOGIC: He has some chronic weakness due to his myasthenia gravis, but no focal or new signs. PAST MEDICAL HISTORY: 1. Myasthenia gravis. 2. Extreme morbid obesity, unable to ambulate. 3. Hypertension. 4. Diastolic congestive heart failure with a normal ejection fraction 1 year ago. 5. Obstructive sleep apnea on nighttime BiPAP set at 16 and 14. 6. Obesity hypoventilation syndrome. 7. Benign prostatic hyperplasia. 8. COPD. 9. Diabetes mellitus type 2, on previous admission history and physical, but the patient denies that and is not on any diabetic medications right now. 10. Previous DVT on chronic Coumadin therapy. 11. Chronic hepatitis C. PAST SURGICAL HISTORY: 1. Cholecystectomy. 2. Right knee surgery. 3. Tonsillectomy. 4. Tumor removal from index finger right hand. 5. Adenoid removal. SOCIAL HISTORY: No alcohol or illicit drugs. He quit smoking many years ago. He is a intermediate resident, essentially bed-bound. He is a do not attempt resuscitation. His medical power of ip technology transactions attorney is his sister, Judith Ptots or other family surgical appliances salesperson is Ashley Ayoub, a close family friend. FAMILY HISTORY: Mother at age of 95 and father at age of 91, both of natural causes. ALLERGIES: INCLUDE AMOXICILLIN, AUGMENTIN, CEPHALOSPORINS, CLAVULANIC ACID, CLINDAMYCIN, GATIFLOXACIN, LEVAQUIN, PENICILLINS, TAMIFLU, TEQUIN, AND VANCOMYCIN. OF NOTE, THE PATIENT ACTUALLY HAS HAD A COURSE OF LEVAQUIN WITHOUT ANY REACTION AND HAS JUST NOW HAD CEFEPIME IN THE EMERGENCY ROOM WITHOUT ANY IMMEDIATE SIDE EFFECTS, THOUGH HE WAS PRETREATED WITH BENADRYL. MEDICATIONS: 1. Lactobacillus one tablet 2 times a day. 2. Allopurinol 300 mg daily. 3. Benadryl 25 mg every 6 hours as needed for allergic rhinitis. 4. Budesonide suspension one vial inhaled orally as needed for shortness of breath. 5. Calamine lotion as needed. 6. Calcium carbonate 600 mg daily. 7. Carvedilol 12.5 mg two times a day. 8. Cetirizine 10 mg daily as needed. 9. Coumadin 3 mg daily. 10. Flomax 0.8 mg p.o. daily. 11. Gabapentin 100 mg three times a day. 12. Ibuprofen as needed for pain. 13. Levaquin 750 mg daily, this was actually given for 10 days, so he is actually still on it. 14. Lisinopril 10 mg daily. 15. Loperamide as needed. 16. Lyrica 75 mg three times a day. 17. Mycophenolate mofetil 1000 mg twice a day. 18. [place] 5/325 one tablet 3 times a day as needed for pain. 19. Zofran as needed for nausea and vomiting. 20. Potassium chloride extended release 20 mEq tablets two tablets each morning. 21. Pyridostigmine bromide 30 mg three times a day. 22. Cholestyramine one packet every other day. 23. Robitussin as needed for coughing. 24. Spironolactone 25 mg daily. 25. Torsemide 100 mg once a day. 26. Zocor 20 mg daily. 27. Zoloft 50 mg daily. PHYSICAL EXAMINATION: VITAL SIGNS: Blood pressure 118/66, pulse 83, respirations 18, temperature 99.0 , and O2 saturations 93% on 3 L. GENERAL: This is a well-developed, morbidly obese man, lying flat on his back due to the low blood pressure, but he appears to be slightly obstructed in his breathing when he is doing this, but his blood pressure having come up when I did sit him up a little bit and he was breathing much better than and more alert without any drops in his blood pressure. HEENT: Left pupil, round and reactive to light. In the right, corneal scar, and the pupils nonreactive. The left pupil does have a visible cataract behind it. Oropharynx clear without lesions, erythema, or exudate. There is some very dry mucous membranes. NECK: Supple. Very obese, hard to palpate anything. HEART: Regular rate and rhythm. No murmurs, rubs, or gallops. LUNGS: Difficult to auscultate air movement due to severe morbid obesity, but it seems to be clear bilaterally. ABDOMEN: Soft, obese, and nontender to palpation. Does have some dependent edema on the bilateral pannus near the bed, that is a little bit reddish colored, but typical for edema. There are a few red papules on the left side as well, but no surrounding cellulitis or open lesions. EXTREMITIES: Legs, he has some bilateral dependent lower extremity edema. No clubbing or cyanosis and has good pulses. SKIN: See above extremity exam. NEUROLOGIC: The patient can move all extremities. He has no facial droop. Has clear speech. PSYCHIATRIC: The patient is alert and oriented x3. Normal mood and affect. LABORATORY DATA: CBC with a white blood cell count of 10.9, which is about typical for him from previous admissions and neutrophil count of 67%, monocytes are a little high at 12,000, hemoglobin 10.4, hematocrit 31.3, platelet count 207. Complete metabolic panel is notable for a sodium of 133, chloride of 95, BUN of 50, creatinine of 2.66, which is high for him as he has a normal creatinine, glucose of 117. Lactic acid was -1.8. Serum total protein was 5.5. The rest of his CMP was normal. IMAGING STUDIES: Chest x-ray, I did review the chest x-ray done in the emergency room along with the radiologist's report. It is very poor visualization of the left base. This could be an infiltrate, but most likely has to do with his cardiac silhouette and has poor inspiration and some rotation. No other significant abnormalities besides cardiomegaly. No EKG done in the emergency room. ASSESSMENT: 1. Sepsis with hypotension. The patient has minimal infectious symptoms and almost normal white count at this time. I do not see any strong evidence for pneumonia at this point. He does have significant hypotension, this is improved with fluids , and when I am getting him off the Levophed, I am suspicious that he may just be volume depleted, though he reports he has been taking plenty of fluids. He is on a large amount of diuretics and possibly he has just not been drinking a normal amount of fluids to go with these. This may also be some sort of reaction he has had to the Levaquin as well. He does have a listed allergy to it and is definitely on too high of a dose for his current creatinine. I do not know what his creatinine was at the emergency room a week ago though. I will continue cefepime that was started in the emergency room along with pretreatment with Benadryl and discontinued the Levaquin as he has already had a week of 750 daily even with his elevated creatinine. His blood cultures pending. If we are not able to get him off Levophed, we will try to bolus him small amounts of fluid. I do not want to be careful as he has a history of the humming volume overloaded easily. We will hold his diuretics and LORETTA inhibitor for now. 2. History of some chest pains. This might be related to his volume depletion or active infectious process, but we will go ahead and check troponins, which have not been done and an EKG. 3. Obesity hypoventilation syndrome with obstructive sleep apnea. We will have the patient on BiPAP on every sleeps at his home settings. We will have Pulmonology consult when he is in the ICU due to his critical care needs. 4. History of hypertension. Holding antihypertensives for now. 5. Diastolic congestive heart failure. We will watch closely for volume overload. 6. Acute renal failure, possibly prerenal. Could be possibly a medication side effect as well. I suspect it is from his torsemide and spironolactone. We will hold diuretics for now. We will recheck now that he had volume repletion and we will monitor closely. If it does not improve quickly, we will have Nephrology consult. 7. Deep venous thrombosis prophylaxis. Continue the patient's Coumadin. 8. Gastrointestinal prophylaxis. Put the patient on Pepcid twice a day. CODE STATUS: The patient is a do not attempt resuscitation. His medical power of ip technology transactions attorney is his sister, Judith Potts. Job ID: [id number] [facility]
[2019-04-19 20:48] LABS: Prothrombin Time 22.4 SEC (12.0-14.7)
[2019-04-19] MEDS: Cholestyramine/Aspartame 4 gm Packet PO SCH (21:50)
[2019-04-20 04:39] LABS: #Eosinphils 0.2 thou/uL (0.0-0.7); #Lymphocytes 1.7 thou/uL (1.20-3.40); #Monocytes 1.5 thou/uL (0.11-0.59); #Neutrophils 7.2 thou/uL (1.40-6.50); %Basophils 0.1 % (0.0-1.0); %Eosinophils 1.5 % (0.0-10.0); %Lymphocytes 15.6 % (21.0-51.0); %Monocytes 14.1 % (0.0-10.0); %Neutrophils 68.7 % (42.0-75.0); Hemoglobin 10.3 g/dL (14.0-18.0); Mean Corpuscular HGB CONC 33.7 g/dL (32.0-36.0); Mean Corpuscular Hemoglobin 32.1 pg (27.0-31.0); Mean Corpuscular Volume 95.1 fL (78.0-98.0); Mean Platelet Volume 8.2 fL (7.4-10.4); Platelet Count 202 thou/uL (130-400); White Blood Cell (WBC) Count 10.5 thou/uL (4.8-10.8)
[2019-04-20 04:44] LABS: INR-International Normal Ratio 2.1; Prothrombin Time 23.6 SEC (12.0-14.7)
[2019-04-20] MEDS: Sodium Chloride 0.9% 1,000 ML IV SCH ×2 (04:46→09:30)
[2019-04-20 04:56] LABS: Anion Gap 12 mmol/L (10-20); BUN (Urea Nitrogen) 47 mg/dL (8.4-25.7); Calc. Creatinine Clearance 106 mL/min (70-130); Calcium 8.1 mg/dL (7.8-10.44); Carbon Dioxide 28 mmol/L (23-31); Chloride 99 mmol/L (98-107); Estimated GFR-MDRD 31; Glucose 114 mg/dL (80-115); Potassium 4.4 mmol/L (3.5-5.1); Sodium 135 mmol/L (136-145)
[2019-04-20] MEDS: Mycophenolate 250 MG CAP PO SCH ×2 (09:00→21:39)
[2019-04-20] MEDS ORDERED: FLU VACC TS2019-20(65YR UP)/PF 180 MCG/0.5 ML SYRINGE IM ONE (09:00)
[2019-04-20] MEDS: Heparin 5,000 UNITS/ML VIAL SC SCH ×3 (09:00→21:39)
[2019-04-20] MEDS ORDERED: Prevnar 13-Val Conj/PF 0.5 ML SYRINGE IM ONE (09:00)
--- NOTE | 2019-04-20 10:19 | CON ---
DATE OF CONSULTATION: HISTORY OF PRESENT ILLNESS: Vince Majano is a 69-year-old morbidly obese gentleman from the [facility], who weighs 228 kg, severely deconditioned, unclear when the last time he walked. He was brought to the hospital because of fever and hypotension. This morning, in the ICU, he remains encephalopathic, therefore unable to give significant history. Though, he states he is not having any difficulty breathing. Extensive previous multiple medical records. PAST MEDICAL HISTORY: Pertinent for morbid obesity, sleep apnea, hepatitis C, myasthenia gravis, hypertension, diabetes, chronic stasis, and COPD. PAST SURGICAL HISTORY: Multiple; cholecystectomy, right knee, tonsillectomy, and adenoids. SOCIAL HISTORY: Tobacco, none in the residential. Alcohol, none. He has been in and out of this hospital numerous times for sepsis syndrome secondary to C diff cellulitis, problem. MEDICATIONS: List of medicines from the residential; 1. Guaifenesin 600. 2. Benadryl. 3. Coumadin 3. 4. Torsemide 100. 5. Flomax 0.8. 6. Aldactone 25. 7. Zocor 20. 8. Zoloft 50. 9. Mestinon 30 three times a day. 10. Lyrica 75. 11. Potassium. 12. CellCept 1000 twice a day. 13. Gabapentin 100 three times a day. 14. Coreg 12.5 twice a day. 15. He is now on his Levophed and Maxipime antibiotic. So far, all cultures are negative. REVIEW OF SYSTEMS: Negative. ALLERGIES: HE HAS MULTIPLE ALLERGIES INCLUDING CEPHALOSPORIN, PENICILLIN, CLINDAMYCIN, TAMIFLU, VANCOMYCIN PHYSICAL EXAMINATION: VITAL SIGNS: Pulse 100, blood pressure 100/70, and respiratory rate 28. GENERAL: Appears to be in no acute distress, morbidly obese, stasis edema. CHEST: Decreased breath sounds without any wheezing. CARDIAC: Normal S1 and S2. No gallops. ABDOMEN: Difficult to assess, too massive. LABORATORY DATA: His initial chest x-ray shows some rotation. I did not see any obvious infiltrate or masses. So far, all cultures are negative. His lab shows white count of 10,000, H and H of 10 and 30, platelet count normal. Renal function, creatinine 2.14. IMPRESSION: Febrile illness, possibly pneumonia, morbid obesity, chronic stasis, renal failure, sleep apnea, and myasthenia gravis. Most important medication is to continue his myasthenia gravis medication. Agree with broad-spectrum antibiotics. Aggressive neb treatment. Supportive care. Prognosis is guarded. He is apparently a DNR. Consultation note, 45-minute critical care time. I am going to add some stress dose of steroids to his present regime. Job ID: [id number]
[2019-04-20] MEDS: HYDROcodone/Acetaminophen 5/325 mg Tablet PO SCH ×3 (11:34→21:40)
[2019-04-20] MEDS: Pyridostigmine Bromide IR 60 MG TAB PO SCH ×3 (11:37→21:40)
[2019-04-20] MEDS: Pregabalin 75 MG CAP PO SCH ×3 (11:38→21:38)
[2019-04-20] MEDS: Allopurinol 300 MG TAB PO SCH (11:38)
[2019-04-20] MEDS: Hydrocortisone Sod Succ/PF 100 mg/2 ml Vial IVP SCH ×2 (12:15→18:26)
--- NOTE | 2019-04-20 14:16 | CON ---
DATE OF CONSULTATION: 04/20/2019 HISTORY OF PRESENT ILLNESS: A 69-year-old whom I had seen him multiple times in the past with a history of obesity, myasthenia gravis, SANKET, treated and cured hepatitis C, whom I had seen in the past for multiple episodes of cellulitis in the lower extremities. Also, an episode in 17, which was felt to be due to gouty arthritis. He has been admitted to a [place] [facility]. He has gained quite a bit of weight since 2017. He had one episode of diarrhea due to Cryptosporidium and deep vein thrombosis and had a fecal impaction episode and this time he was admitted with fever and respiratory symptoms, mostly cough, congestion, nasal drainage. Apparently was given levofloxacin and without improvement. On arrival, he was having pain in the chest, mostly in the central area as well as in the left side associated with deep breathing and cough. No seizure activity. No altered mental status. No abdominal pain. No genitourinary symptoms. No major skin areas of breakdown. The patient has been admitted and started on broad-spectrum coverage. He is currently awake. He is a little bit difficulty with replying to questions, but he recognized me and is oriented. Little bit of problems with recollection of events, but does not have difficulty with finding words and follows commands properly. He denies any headaches, still with [id number] pain in the left anterior chest area when he takes a deep breath or coughs. No abdominal pain. No genitourinary symptoms. No joint symptoms other than usual osteoarthritis and no evidence of skin disorder at this time other than mild maceration in the back areas. PAST MEDICAL HISTORY: Morbid obesity, hep C treated and cured, SANKET, episodes of cellulitis in lower extremities, Cryptosporidiosis, myasthenia gravis, type 2 diabetes, deep vein thrombosis. SURGICAL HISTORY: Right knee surgery, cholecystectomy, knee surgery, and adenoidectomy. SOCIAL HISTORY: Lives in a [place] [facility]. Apparently former smoker and former drug use many decades ago including intravenous. ALLERGIES: AMOXICILLIN, CEPHALOSPORINS, CLINDAMYCIN, LEVOFLOXACIN, TAMIFLU. FAMILY HISTORY: Noncontributory. CURRENT MEDICATIONS: 1. P.r.n. medications. 2. Inhalers. 3. Allopurinol. 4. Cefepime. 5. Claritin. 6. Solu-Cortef. 7. CellCept. 8. Levophed. 9. Zofran. 10. Lyrica. 11. Mestinon. 12. Flomax. 13. Warfarin. PHYSICAL EXAMINATION: VITAL SIGNS: Temperature max 100.6, blood pressure 99/34, pulse 108, O2 saturation 96% with nasal cannula O2. SKIN: With areas of maceration in the presacral region, but no true breakdown. Peripheral IV access. Jeong catheter in place. Erythema in the face with facial flushing. No lymphadenopathy noticeable. HEENT: Ocular movements conjugate. 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 Oral cavity with still quite a few teeth in place with purulent exudate noticed in the posterior oropharynx probably from sinus origin. LUNGS: Symmetric air entry. No obvious crackles or wheezing. HEART: S1, S2. Regular rate. No S3 or S4. ABDOMEN: With very prominent panniculus, but not tender, not distended. No ascites. No bladder distention. EXTREMITIES: Osteoarthritis, but no joint inflammatory activity noted. He is able to move all 4 extremities. Some edema in lower extremities. Pulses 1+ in dorsalis pedis. Cap refill is normal. NEURO: He is awake, recognized me, recollection is okay, but he has some difficulty with sequencing of events. LABORATORY DATA: Sodium 133 and 135, creatinine is up to 2.6 and now is 2.15. Liver profile normal. White cell count is 10.9 and 10.5, hemoglobin 10.3, platelets 202 with 68% neutrophils. Two sets of blood cultures thus far no growth. C diff antigen toxin negative. Chest x-ray with technical difficulties due to his size, possible left lower lobe infiltrate. ASSESSMENT: 1. Morbid obesity. 2. Myasthenia gravis, on treatment. 3. Prior episodes of cellulitis. 4. Treated hepatitis C and cured. 5. Respiratory symptoms of recent onset with fever, questionably abnormal chest x-ray, chest pain. DISCUSSION: Differential diagnosis includes community-acquired pneumonia versus an alternate process, for example, bacteremia, urinary tract infection appears to be less likely due to lack of symptoms. We do not have a sample submitted yet for urinalysis. In terms of respiratory tract infection, viral versus bacterial is within the realm of possibilities. We will go ahead and submit respiratory virus PCR panel and continue cefepime. May need to add anti MRSA coverage but lately studies have shown that for CAP, added MRSA coverage is not necessarily associated with better outcomes and we will go ahead and withhold that for the time being. Atypical coverage may be have to be considered. Submit Legionella and strep pneumo antigen in urine as well. Job ID: [id number]
[2019-04-20 14:42] LABS: Bilirubin Negative (Negative); Blood, Urine 1+ (Negative); Clarity Turbid (Clear); Glucose, Urine (Dipstick) Normal (Negative); Leukocyte 250 Leu/uL (Negative); Nitrite Negative (Negative); Protein, Urine (Dipstick) 50 mg/dL (Neg-Trace); RBC/HPF 0-3 HPF (0-3); Squamous Epithelial 0-3 HPF (0-3); Urobilinogen Normal mg/dL (Less than 2)
[2019-04-20 14:49] LABS: Bacteria/HPF 2+ HPF (None Seen)
[2019-04-20 14:51] LABS: Urine Culture Reflex Yes Yes
[2019-04-20] MEDS: Gabapentin 100 MG CAP PO SCH ×2 (15:27→21:38)
[2019-04-20] MEDS: Cefepime 2 GM in Sodium Chloride 0.9% 100 ML IVPB SCH (15:51)
[2019-04-20] MEDS: Warfarin Sodium 3 MG TAB PO SCH (18:26)
[2019-04-20] MEDS ORDERED: Tamsulosin HCl 0.4 MG CAP PO SCH (21:00)
[2019-04-20] MEDS: Tamsulosin HCl 0.4 MG CAP PO SCH (21:38)
[2019-04-20] MEDS: Famotidine/PF 20 mg/2ml Vial SLOW IVP SCH (21:39)
[2019-04-20] MEDS: Lactinex Tablet PO SCH (21:39)
--- NOTE | 2019-04-20 21:52 | PDOC.HOSPP ---
- Subjective Encounter Date: 04/20/19 Encounter Time: 11:45 Subjective: pt up in bed on face mask. - Objective Vital Signs & Weight: Vital Signs (12 hours) Temp Pulse Resp Pulse Ox 04/20/19 18:15 95 27 H 97 04/20/19 16:00 98.8 F 04/20/19 13:33 95 18 97 04/20/19 12:00 100.4 F H Weight Weight 498 lb Most Recent Monitor Data Heart Rate from ECG 90 NIBP 108/56 NIBP BP-Mean 73 Respiration from ECG 20 SpO2 96 I&O: 04/19/19 04/20/19 04/21/19 05:59 06:59 06:59 Intake Total 1277 Output Total 200 Balance 1077 Result Diagrams: 04/20/19 03:49 04/20/19 03:49 Hospitalist ROS - Review of Systems Respiratory: denies: cough, dry, shortness of breath, hemoptysis, SOB with excertion, pleuritic pain, sputum, wheezing, other Cardiovascular: denies: chest pain, palpitations, orthopnea, paroxysmal noc. dyspnea, edema, light headedness, other Gastrointestinal: denies: nausea, vomiting, abdominal pain, diarrhea, constipation, melena, hematochezia, other Genitourinary: denies: dysuria, frequency, incontinence, hematuria, retention, other Musculoskeletal: denies: neck pain, shoulder pain, arm pain, back pain, hand pain, leg pain, foot pain, other - Medication Medications: Active Medications Generic Name Dose Route Start Last Admin Trade Name Freq PRN Reason Stop Dose Admin Hydrocodone Bitart/Acetaminophen 1 tab 04/19/19 21:00 04/20/19 21:40 [place] 5/325 PO Not Given TID JOVON Acidophilus 1 tab 04/20/19 21:00 04/20/19 21:39 Floranex PO 1 tab BID JOVON Administration Albuterol/Ipratropium 3 ml 04/20/19 13:00 04/20/19 18:15 Duoneb NEB 3 ml [id number] JOVON Administration Allopurinol 300 mg 04/20/19 09:00 04/20/19 11:38 Zyloprim PO 300 mg DAILY JOVON Administration Cholestyramine Resin 4 gm 04/19/19 22:00 04/19/19 21:50 Questran Light PO 4 gm Q2DAYS JOVON Administration Famotidine 20 mg 04/19/19 21:00 04/20/19 21:39 Pepcid SLOW IVP 20 mg QPM JOVON Administration Gabapentin 100 mg 04/20/19 15:00 04/20/19 21:38 Neurontin PO 100 mg TID JOVON Administration Heparin Sodium (Porcine) 5,000 units 04/19/19 21:00 04/20/19 21:39 Heparin SC 5,000 units TID JOVON Administration Hydrocortisone Sodium Succinate 50 mg 04/20/19 12:00 04/20/19 18:26 Solu-Cortef IVP 04/27/19 12:01 50 mg Q6HR JOVON Administration Cefepime HCl 2 gm/ Sodium 100 mls @ 200 mls/hr 04/19/19 16:00 04/20/19 15:51 Chloride IVPB 100 mls Q24HR JOVON Administration Sodium Chloride 1,000 mls @ 100 mls/hr 04/20/19 09:30 04/20/19 09:30 Normal Saline 0.9% IV Not Given .Q10H JOVON Mycophenolate Mofetil 1,000 mg 04/19/19 21:00 04/20/19 21:39 Cellcept PO 1,000 mg BID JOVON Administration Pregabalin 75 mg 04/19/19 21:00 04/20/19 21:38 Lyrica PO 75 mg TID JOVON Administration Pyridostigmine [place] 30 mg 04/19/19 21:00 04/20/19 21:40 Mestinon PO 30 mg TID JOVON Administration Tamsulosin HCl 0.8 mg 04/19/19 21:00 04/20/19 21:38 Flomax PO 0.8 mg HS JOVON Administration Warfarin Sodium 3 mg 04/20/19 17:00 04/20/19 18:26 Coumadin PO 3 mg 1700 JOVON Administration - Exam Neck: negative: supple, symmetric, no JVD, no thyromegaly, no lymphadenopathy, no carotid bruit, JVD Heart: negative: RRR, no murmur, no gallops, no rubs, normal peripheral pulses, irregular, diminshed peripheral pulses, murmur present, II/IV, III/IV Respiratory: negative: CTAB, no wheezes, no rales, no ronchi, normal chest expansion, no tachypnea, normal percussion, rales, rhonchi, tachypneic, wheezes Gastrointestinal: negative: soft, non-tender, non-distended, normal bowel sounds , no palpable masses, no hepatomegaly, no splenomegaly, no bruit, no guarding, no rigidity, tender to palpation, distended, diminished bowl sounds, voluntary guarding Hosp A/P (1) Sepsis Code(s): A41.9 - SEPSIS, UNSPECIFIED ORGANISM Status: Acute (2) HTN (hypertension) Code(s): I10 - ESSENTIAL (PRIMARY) HYPERTENSION Status: Chronic (3) Morbid obesity with body mass index of 50 or higher Code(s): E66.01 - MORBID (SEVERE) OBESITY DUE TO EXCESS CALORIES Status: Chronic (4) Myasthenia gravis Code(s): G70.00 - MYASTHENIA GRAVIS WITHOUT (ACUTE) EXACERBATION Status: Chronic (5) SANKET (obstructive sleep apnea) Code(s): G47.33 - OBSTRUCTIVE SLEEP APNEA (ADULT) (PEDIATRIC) Status: Chronic (6) Pneumonia Code(s): J18.9 - PNEUMONIA, UNSPECIFIED ORGANISM Status: Acute - Plan will continue iv abx, will continue his meds for MS. rsv panel negative. pt on levophed
[2019-04-21] MEDS: Hydrocortisone Sod Succ/PF 100 mg/2 ml Vial IVP SCH ×4 (00:02→17:31)
[2019-04-21] MEDS: Sodium Chloride 0.9% 1,000 ML IV SCH ×3 (00:07→15:00)
[2019-04-21 04:40] LABS: INR-International Normal Ratio 2.4; Prothrombin Time 25.9 SEC (12.0-14.7)
[2019-04-21] MEDS: Gabapentin 100 MG CAP PO SCH ×3 (08:51→21:16)
[2019-04-21] MEDS: Pyridostigmine Bromide IR 60 MG TAB PO SCH ×3 (08:51→20:06)
[2019-04-21] MEDS: Pregabalin 75 MG CAP PO SCH ×3 (08:51→21:16)
[2019-04-21] MEDS: Lactinex Tablet PO SCH ×2 (08:51→20:06)
[2019-04-21] MEDS: HYDROcodone/Acetaminophen 5/325 mg Tablet PO SCH ×3 (08:53→21:16)
[2019-04-21] MEDS: Heparin 5,000 UNITS/ML VIAL SC SCH (08:56)
--- NOTE | 2019-04-21 10:22 | PDOC.HOSPP ---
- Subjective Encounter Date: 04/21/19 Encounter Time: 12:00 Subjective: Feeling much better. Less confused. Off Levophed. - Objective Vital Signs & Weight: Vital Signs (12 hours) Temp Pulse Resp Pulse Ox 04/21/19 08:00 98.8 F 04/21/19 07:55 85 18 97 04/21/19 04:00 98.2 F 04/21/19 02:06 81 21 H 97 04/21/19 01:04 85 23 H 99 04/21/19 00:00 98.4 F Weight Weight 512 lb 6 oz Most Recent Monitor Data Heart Rate from ECG 95 NIBP 106/65 NIBP BP-Mean 78 Respiration from ECG 23 SpO2 99 I&O: 04/20/19 04/21/19 04/22/19 06:59 06:59 06:59 Intake Total 1519 Output Total 1435 100 Balance 84 -100 Result Diagrams: 04/20/19 03:49 04/20/19 03:49 Hospitalist ROS - Review of Systems Constitutional: denies: fever, chills Respiratory: denies: cough, shortness of breath Cardiovascular: denies: chest pain Gastrointestinal: denies: nausea, vomiting, abdominal pain - Medication Medications: Active Medications Generic Name Dose Route Start Last Admin Trade Name Freq PRN Reason Stop Dose Admin Hydrocodone Bitart/Acetaminophen 1 tab 04/19/19 21:00 04/21/19 08:53 [place] 5/325 PO 1 tab TID JOVON Administration Acidophilus 1 tab 04/20/19 21:00 04/21/19 08:51 Floranex PO 1 tab BID JOVON Administration Albuterol/Ipratropium 3 ml 04/20/19 13:00 04/21/19 07:55 Duoneb NEB 3 ml [id number] JOVON Administration Allopurinol 300 mg 04/20/19 09:00 04/20/19 11:38 Zyloprim PO 300 mg DAILY JOVON Administration Cholestyramine Resin 4 gm 04/19/19 22:00 04/19/19 21:50 Questran Light PO 4 gm Q2DAYS JOVON Administration Gabapentin 100 mg 04/20/19 15:00 04/21/19 08:51 Neurontin PO 100 mg TID JOVON Administration Hydrocortisone Sodium Succinate 50 mg 04/20/19 12:00 04/21/19 06:23 Solu-Cortef IVP 04/27/19 12:01 50 mg Q6HR JOVON Administration Cefepime HCl 2 gm/ Sodium 100 mls @ 200 mls/hr 04/19/19 16:00 04/20/19 15:51 Chloride IVPB 100 mls Q24HR JOVON Administration Sodium Chloride 1,000 mls @ 100 mls/hr 04/20/19 09:30 04/21/19 00:07 Normal Saline 0.9% IV 1,000 mls .Q10H JOVON Administration Mycophenolate Mofetil 1,000 mg 04/19/19 21:00 04/20/19 21:39 Cellcept PO 1,000 mg BID JOVON Administration Pregabalin 75 mg 04/19/19 21:00 04/21/19 08:51 Lyrica PO 75 mg TID JOVON Administration Pyridostigmine [place] 30 mg 04/19/19 21:00 04/21/19 08:51 Mestinon PO 30 mg TID JOVON Administration Tamsulosin HCl 0.8 mg 04/19/19 21:00 04/20/19 21:38 Flomax PO 0.8 mg HS JOVON Administration Warfarin Sodium 3 mg 04/20/19 17:00 04/20/19 18:26 Coumadin PO 3 mg 1700 JOVON Administration - Exam General Appearance: NAD, awake alert General - other findings: Massive obesity ENT: moist mucosa Heart: RRR, no murmur, no gallops, no rubs Respiratory: CTAB, no wheezes, no rales, no ronchi Gastrointestinal: soft, non-tender, non-distended, normal bowel sounds Neurological: no focal deficits Psychiatric: normal affect, normal behavior Hosp A/P (1) Pneumonia Code(s): J18.9 - PNEUMONIA, UNSPECIFIED ORGANISM Status: Acute (2) Sepsis Code(s): A41.9 - SEPSIS, UNSPECIFIED ORGANISM Status: Acute Qualifiers: Severe sepsis shock status: with septic shock (3) JOSE CARLOS (acute kidney injury) Code(s): N17.9 - ACUTE KIDNEY FAILURE, UNSPECIFIED Status: Acute (4) COPD (chronic obstructive pulmonary disease) Status: Chronic (5) Diabetes mellitus Code(s): E11.9 - TYPE 2 DIABETES MELLITUS WITHOUT COMPLICATIONS Status: Chronic (6) HTN (hypertension) Code(s): I10 - ESSENTIAL (PRIMARY) HYPERTENSION Status: Chronic (7) Morbid obesity with body mass index of 50 or higher Code(s): E66.01 - MORBID (SEVERE) OBESITY DUE TO EXCESS CALORIES Status: Chronic (8) Myasthenia gravis Code(s): G70.00 - MYASTHENIA GRAVIS WITHOUT (ACUTE) EXACERBATION Status: Chronic (9) SANKET (obstructive sleep apnea) Code(s): G47.33 - OBSTRUCTIVE SLEEP APNEA (ADULT) (PEDIATRIC) Status: Chronic (10) Hx of deep venous thrombosis Code(s): Z86.718 - PERSONAL HISTORY OF OTHER VENOUS THROMBOSIS AND EMBOLISM Status: Chronic (11) Chronic anticoagulation Code(s): Z79.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 Silva' imput Stress dose steroids, IV fluids Creatinine improving a bit Respiratory support with BIPAP when sleeping, Dr. Garcia following Coumadin therapeutic Off Levophed so can transition to the IMCU, d/c Femoral triple lumen
[2019-04-21] MEDS: Mycophenolate 250 MG CAP PO SCH ×2 (10:25→20:05)
[2019-04-21] MEDS: Allopurinol 300 MG TAB PO SCH (10:25)
[2019-04-21] MEDS ORDERED: diphenhydrAMINE 25 MG CAP PO PRN (10:26)
[2019-04-21 13:20] VITALS: BP 130/67
--- NOTE | 2019-04-21 13:26 | PRG ---
DATE OF SERVICE: 04/21/2019 SUBJECTIVE: The patient is still in the ICU, looking better. He is awake and alert. Less cough. No chest pain. No abdominal pain. OBJECTIVE: VITAL SIGNS: T-max 100.6, now he has been afebrile. BP 150/80, pulse is 105, and O2 saturation 97. LUNGS: With somewhat coarse breath sounds. HEART: S1 and S2. Regular rate. ABDOMEN: Soft, not distended. LABORATORY DATA: Sodium 135 and creatinine is down to 2.15 still above his baseline. White cell count 10.5, hemoglobin 10.3, and platelets 202. Microbiology with negative urine culture. Respiratory virus PCR panel negative. Blood culture, no growth at 48 hours. Central line has been removed. ASSESSMENT AND DISCUSSION: Morbid obesity, myasthenia gravis, history of cellulitis, treated hepatitis C, respiratory symptoms with fever. The patient will continue on CAP coverage with clear-cut improvement identified. No evidence of viral infection at this point in time. Job ID: [id number]
--- NOTE | 2019-04-21 14:42 | PRG ---
DATE OF SERVICE: 04/21/2019 SUBJECTIVE: Vince Majano is a morbidly obese gentleman. This morning, he is stable. He is off Levophed. OBJECTIVE: VITAL SIGNS: Pulse 85 respirations 18, saturation is 92 on 2 liters, blood pressure 140/80, 77% on room air. CHEST: Reveal decreased breath sounds. No wheezing. CARDIAC: Normal S1 and S2. No gallops. ABDOMEN: Massive. EXTREMITIES: Trace edema. LABORATORY DATA: All cultures so far negative. ASSESSMENT: 1. Sepsis syndrome. Cultures negative. 2. Morbid obesity. 3. Sleep apnea. 4. Possibly infiltrate, though I doubt. PLAN: He can be transferred out of the ICU. I would deescalate his antibiotics. Continue stress dose of steroids. Job ID: [id number]
[2019-04-21] MEDS: Cefepime 2 GM in Sodium Chloride 0.9% 100 ML IVPB SCH (16:42)
[2019-04-21] MEDS: Budesonide 0.5 MG/2 ML NEB NEB SCH (18:30)
[2019-04-21] MEDS: guaiFENesin ER 600 MG TAB PO SCH (20:05)
[2019-04-21] MEDS: Atorvastatin Calcium 10 MG TAB PO SCH (20:06)
[2019-04-21] MEDS: Tamsulosin HCl 0.4 MG CAP PO SCH (20:06)
[2019-04-21] MEDS: Nystatin Powder 15 GM BOT TOP SCH (20:07)
[2019-04-21] MEDS: Warfarin Sodium 3 MG TAB PO SCH (20:07)
[2019-04-21] MEDS ORDERED: Famotidine 20 MG TAB PO SCH (21:00)
[2019-04-21] MEDS: Cholestyramine/Aspartame 4 gm Packet PO SCH (22:28)
[2019-04-22] MEDS: Hydrocortisone Sod Succ/PF 100 mg/2 ml Vial IVP SCH ×4 (00:20→17:53)
[2019-04-22] MEDS: Sodium Chloride 0.9% 1,000 ML IV SCH ×3 (02:41→21:58)
[2019-04-22 04:54] LABS: #Eosinphils 0.1 thou/uL (0.0-0.7); #Lymphocytes 0.8 thou/uL (1.20-3.40); #Monocytes 0.9 thou/uL (0.11-0.59); #Neutrophils 6.3 thou/uL (1.40-6.50); %Basophils 0.1 % (0.0-1.0); %Eosinophils 1.2 % (0.0-10.0); %Lymphocytes 9.5 % (21.0-51.0); %Monocytes 11.2 % (0.0-10.0); %Neutrophils 78.1 % (42.0-75.0); Hemoglobin 9.3 g/dL (14.0-18.0); Mean Corpuscular HGB CONC 31.9 g/dL (32.0-36.0); Mean Corpuscular Hemoglobin 30.3 pg (27.0-31.0); Mean Corpuscular Volume 95.3 fL (78.0-98.0); Platelet Count 204 thou/uL (130-400); RBC Distribution Width 14.9 % (11.5-14.5); Red Blood Cell (RBC) Count 3.06 mill/uL (4.70-6.10)
[2019-04-22 05:03] LABS: INR-International Normal Ratio 2.5; Prothrombin Time 26.6 SEC (12.0-14.7)
[2019-04-22 05:15] LABS: Anion Gap 12 mmol/L (10-20); BUN (Urea Nitrogen) 37 mg/dL (8.4-25.7); Calc. Creatinine Clearance 196 mL/min (70-130); Calcium 8.1 mg/dL (7.8-10.44); Carbon Dioxide 28 mmol/L (23-31); Chloride 103 mmol/L (98-107); Estimated GFR-MDRD 61; Glucose 152 mg/dL (80-115); Potassium 4.9 mmol/L (3.5-5.1); Sodium 138 mmol/L (136-145)
[2019-04-22] MEDS: Budesonide 0.5 MG/2 ML NEB NEB SCH ×2 (07:20→18:10)
[2019-04-22] MEDS: Gabapentin 100 MG CAP PO SCH ×3 (08:25→20:48)
[2019-04-22] MEDS: Calcium Carbonate 600 MG TAB PO SCH (08:26)
[2019-04-22] MEDS: Famotidine 20 MG TAB PO SCH ×2 (08:26→20:46)
[2019-04-22] MEDS: HYDROcodone/Acetaminophen 5/325 mg Tablet PO SCH ×3 (08:26→20:46)
[2019-04-22] MEDS: guaiFENesin ER 600 MG TAB PO SCH ×2 (08:27→20:47)
[2019-04-22] MEDS: Pyridostigmine Bromide IR 60 MG TAB PO SCH ×3 (08:27→20:47)
--- NOTE | 2019-04-22 08:30 | PRG ---
DATE OF SERVICE: 04/22/2019 SUBJECTIVE: Vince Majano is a 69-year-old morbidly obese gentleman, who is in no respiratory distress. OBJECTIVE: VITAL SIGNS: Pulse 84, respiratory rate 23, saturations are 97% on 2L, and blood pressure 150/81. CHEST: Decreased breath sounds. No wheezing. CARDIAC: Normal S1 and S2. No gallops. ABDOMEN: No masses. LABORATORY DATA: His labs are unremarkable. White count 8000, H and H of 9 and 29, and platelet count is normal. INR is 2.5. IMPRESSION: 1. Morbid obesity. 2. Respiratory failure. 3. Superimposed pneumonia. PLAN: Continue Maxipime. We will switch over to oral antibiotic. All cultures are negative. Supportive care, eventually placement. Job ID: [id number]
[2019-04-22] MEDS: Mycophenolate 250 MG CAP PO SCH ×2 (08:31→20:48)
[2019-04-22] MEDS: Lactinex Tablet PO SCH ×2 (08:32→20:45)
--- NOTE | 2019-04-22 09:39 | PDOC.HOSPP ---
- Subjective Encounter Date: 04/22/19 Encounter Time: 10:20 Subjective: Patient doing much better. Having trouble swallowing food, has to double swallow , but reports this is not new. Breathing better. No confusion. - Objective Vital Signs & Weight: Vital Signs (12 hours) Temp Pulse Resp Pulse Ox 04/22/19 07:17 84 23 H 97 04/22/19 04:00 98 F 04/22/19 02:48 76 17 97 04/22/19 00:47 81 23 H 99 04/22/19 00:00 98.3 F 04/21/19 23:57 98 Weight Weight 507 lb 4.538 oz Most Recent Monitor Data Heart Rate from ECG 69 NIBP 154/81 NIBP BP-Mean 105 Respiration from ECG 20 SpO2 97 I&O: 04/21/19 04/22/19 04/23/19 06:59 06:59 06:59 Intake Total 1519 1363 Output Total 1435 2435 Balance 84 -1072 Result Diagrams: 04/22/19 04:00 04/22/19 04:00 Hospitalist ROS - Review of Systems Constitutional: denies: fever, chills Respiratory: denies: cough, shortness of breath Cardiovascular: denies: chest pain, palpitations Gastrointestinal: denies: nausea, vomiting, abdominal pain - Medication Medications: Active Medications Generic Name Dose Route Start Last Admin Trade Name Freq PRN Reason Stop Dose Admin Hydrocodone Bitart/Acetaminophen 1 tab 04/19/19 21:00 04/22/19 08:26 [place] 5/325 PO 1 tab TID JOVON Administration Acidophilus 1 tab 04/20/19 21:00 04/22/19 08:32 Floranex PO 1 tab BID JOVON Administration Albuterol/Ipratropium 3 ml 04/20/19 13:00 04/22/19 07:17 Duoneb NEB 3 ml [id number] JOVON Administration Allopurinol 300 mg 04/20/19 09:00 04/21/19 10:25 Zyloprim PO 300 mg DAILY JOVON Administration Atorvastatin Calcium 10 mg 04/21/19 21:00 04/21/19 20:06 Lipitor PO 10 mg HS JOVON Administration Budesonide 0.5 mg 04/21/19 18:30 04/22/19 07:20 Pulmicort Neb Solution NEB 0.5 mg BID-RT JOVON Administration Calcium Carbonate 600 mg 04/22/19 09:00 04/22/19 08:26 Caltrate PO 600 mg DAILY JOVON Administration Cholestyramine Resin 4 gm 04/19/19 22:00 04/21/19 22:28 Questran Light PO 4 gm Q2DAYS JOVON Administration Famotidine 20 mg 04/22/19 09:00 04/22/19 08:26 Pepcid PO 20 mg BID JOVON Administration Gabapentin 100 mg 04/20/19 15:00 04/22/19 08:25 Neurontin PO 100 mg TID JOVON Administration Guaifenesin 600 mg 04/21/19 21:00 04/22/19 08:27 Mucinex PO 600 mg BID JOVON Administration Hydrocortisone Sodium Succinate 50 mg 04/20/19 12:00 04/22/19 06:01 Solu-Cortef IVP 04/27/19 12:01 50 mg Q6HR JOVON Administration Cefepime HCl 2 gm/ Sodium 100 mls @ 200 mls/hr 04/19/19 16:00 04/21/19 16:42 Chloride IVPB 100 mls Q24HR JOVON Administration Sodium Chloride 1,000 mls @ 100 mls/hr 04/20/19 09:30 04/22/19 02:41 Normal Saline 0.9% IV Not Given .Q10H JOVON Mycophenolate Mofetil 1,000 mg 04/19/19 21:00 04/22/19 08:31 Cellcept PO 1,000 mg BID JOVON Administration Nystatin 0 gm 04/21/19 21:00 04/21/19 20:07 Mycostatin Powder TOP 1 applic BID JOVON Administration Pregabalin 75 mg 04/19/19 21:00 04/21/19 21:16 Lyrica PO 75 mg TID JOVON Administration Pyridostigmine [place] 30 mg 04/19/19 21:00 04/22/19 08:27 Mestinon PO 30 mg TID JOVON Administration Tamsulosin HCl 0.8 mg 04/19/19 21:00 04/21/19 20:06 Flomax PO 0.8 mg HS JOVON Administration Warfarin Sodium 3 mg 04/20/19 17:00 04/21/19 20:07 Coumadin PO 3 mg 1700 JOVON Administration - Exam General Appearance: NAD, awake alert General - other findings: morbidly obese ENT: moist mucosa Heart: RRR, no murmur, no gallops, no rubs Respiratory: CTAB, no wheezes, no rales, no ronchi Gastrointestinal: soft, non-tender, non-distended, normal bowel sounds Psychiatric: normal affect, normal behavior, A&O x 3 Hosp A/P (1) Pneumonia Code(s): J18.9 - PNEUMONIA, UNSPECIFIED ORGANISM Status: Acute (2) Sepsis Code(s): A41.9 - SEPSIS, UNSPECIFIED ORGANISM Status: Acute Qualifiers: Severe sepsis shock status: with septic shock (3) JOSE CARLOS (acute kidney injury) Code(s): N17.9 - ACUTE KIDNEY FAILURE, UNSPECIFIED Status: Acute (4) COPD (chronic obstructive pulmonary disease) Status: Chronic (5) Diabetes mellitus Code(s): E11.9 - TYPE 2 DIABETES MELLITUS WITHOUT COMPLICATIONS Status: Chronic (6) HTN (hypertension) Code(s): I10 - ESSENTIAL (PRIMARY) HYPERTENSION Status: Chronic (7) Morbid obesity with body mass index of 50 or higher Code(s): E66.01 - MORBID (SEVERE) OBESITY DUE TO EXCESS CALORIES Status: Chronic (8) Myasthenia gravis Code(s): G70.00 - MYASTHENIA GRAVIS WITHOUT (ACUTE) EXACERBATION Status: Chronic (9) SANKET (obstructive sleep apnea) Code(s): G47.33 - OBSTRUCTIVE SLEEP APNEA (ADULT) (PEDIATRIC) Status: Chronic (10) Hx of deep venous thrombosis Code(s): Z86.718 - PERSONAL HISTORY OF OTHER VENOUS THROMBOSIS AND EMBOLISM Status: Chronic (11) Chronic anticoagulation Code(s): 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 Silva' imput, plan per Dr. Garcia to transition to oral antibiotics soon Stress dose steroids, IV fluids Creatinine almost back to normal Respiratory support with BIPAP when sleeping, Dr. Garcia following Coumadin therapeutic Off Levophed so can transition to the IMCU, d/c'd Femoral triple lumen
[2019-04-22] MEDS: Pregabalin 75 MG CAP PO SCH ×3 (10:18→23:22)
[2019-04-22] MEDS: Nystatin Powder 15 GM BOT TOP SCH ×2 (10:19→20:49)
[2019-04-22] MEDS: Allopurinol 300 MG TAB PO SCH (11:03)
[2019-04-22] MEDS: Cefepime 2 GM in Sodium Chloride 0.9% 100 ML IVPB SCH (15:20)
[2019-04-22] MEDS: Warfarin Sodium 3 MG TAB PO SCH (17:53)
[2019-04-22] MEDS: Tamsulosin HCl 0.4 MG CAP PO SCH (20:47)
[2019-04-22] MEDS: Atorvastatin Calcium 10 MG TAB PO SCH (20:47)
[2019-04-23] MEDS: Hydrocortisone Sod Succ/PF 100 mg/2 ml Vial IVP SCH ×2 (00:35→05:57)
[2019-04-23 04:58] LABS: INR-International Normal Ratio 2.5; Prothrombin Time 27.1 SEC (12.0-14.7)
[2019-04-23] MEDS: Budesonide 0.5 MG/2 ML NEB NEB SCH (06:30)
[2019-04-23] MEDS ORDERED: Cefepime 2 GM in Sodium Chloride 0.9% 100 ML IVPB SCH (08:00)
[2019-04-23] MEDS: Sodium Chloride 0.9% 1,000 ML IV SCH (08:37)
--- NOTE | 2019-04-23 08:52 | PRG ---
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 OBJECTIVE: VITAL SIGNS: His maximum temperature is 98. No longer hypertensive. Blood pressure 162/90, pulse 140, and respiratory rate 18. CHEST: Decreased breath sounds. No wheezing. CARDIAC: Normal S1 and S2. No gallops. ABDOMEN: No masses. ASSESSMENT: 1. Sepsis syndrome and hypertension, pretty much resolved. All cultures have been negative. 2. Morbid obesity. 3. Questionable left-sided pneumonia. PLAN: Switch over to oral antibiotics. Discontinue steroids. Transferred out of the ICU. Otherwise, continue neb treatments, try on as much as possible, set the patient at the side of the bed. We will follow. Job ID: [id number]
[2019-04-23] MEDS ORDERED: Fluticasone Propionate Nasal Spray 16 gm Bottle NASAL SCH (09:00)
[2019-04-23] MEDS ORDERED: Cefdinir 300 MG CAP PO SCH (09:00)
[2019-04-23] MEDS: Pyridostigmine Bromide IR 60 MG TAB PO SCH ×2 (09:05→14:38)
[2019-04-23] MEDS: Pregabalin 75 MG CAP PO SCH ×2 (09:06→14:38)
[2019-04-23] MEDS: guaiFENesin ER 600 MG TAB PO SCH (09:06)
[2019-04-23] MEDS: Lactinex Tablet PO SCH (09:06)
[2019-04-23] MEDS: Calcium Carbonate 600 MG TAB PO SCH (09:06)
[2019-04-23] MEDS: Famotidine 20 MG TAB PO SCH (09:06)
[2019-04-23] MEDS: Gabapentin 100 MG CAP PO SCH ×2 (09:06→14:39)
[2019-04-23] MEDS: Allopurinol 300 MG TAB PO SCH (09:07)
[2019-04-23] MEDS: HYDROcodone/Acetaminophen 5/325 mg Tablet PO SCH ×2 (09:07→14:39)
[2019-04-23] MEDS: Mycophenolate 250 MG CAP PO SCH (09:08)
[2019-04-23] MEDS: Nystatin Powder 15 GM BOT TOP SCH (09:09)
--- NOTE | 2019-04-23 10:29 | PDOC.HOSPP ---
- Subjective Encounter Date: 04/23/19 Encounter Time: 12:00 Subjective: Patient has decided he wants to go back to the [facility] on hospice. Sees that he isn't going to get better and is ready whenever his time comes. Wants to eat regular diet with risks. - Objective Vital Signs & Weight: Vital Signs (12 hours) Temp Pulse Resp Pulse Ox 04/23/19 08:00 98.1 F 04/23/19 06:30 99 04/23/19 06:27 63 18 99 04/23/19 04:00 98.8 F 04/23/19 02:20 71 23 H 97 04/23/19 00:20 61 21 H 95 04/23/19 00:00 100 Weight Weight 507 lb 11.593 oz Most Recent Monitor Data Heart Rate from ECG 77 NIBP 162/90 NIBP BP-Mean 114 Respiration from ECG 30 SpO2 93 I&O: 04/22/19 04/23/19 04/24/19 06:59 06:59 06:59 Intake Total 1363 1974 Output Total 2435 1675 155 Balance -1072 299 -155 Result Diagrams: 04/22/19 04:00 04/22/19 04:00 Hospitalist ROS - Review of Systems Constitutional: denies: fever, chills Respiratory: denies: cough, shortness of breath Cardiovascular: denies: chest pain, palpitations Gastrointestinal: denies: nausea, vomiting, abdominal pain - Medication Medications: Active Medications Generic Name Dose Route Start Last Admin Trade Name Freq PRN Reason Stop Dose Admin Hydrocodone Bitart/Acetaminophen 1 tab 04/19/19 21:00 04/23/19 09:07 Iliamna 5/325 PO 1 tab TID JOVON Administration Acidophilus 1 tab 04/20/19 21:00 04/23/19 09:06 Floranex PO 1 tab BID JOVON Administration Albuterol/Ipratropium 3 ml 04/20/19 13:00 04/23/19 06:27 Duoneb NEB 3 ml [id number] JOVON Administration Allopurinol 300 mg 04/20/19 09:00 04/23/19 09:07 Zyloprim PO 300 mg DAILY JOVON Administration Atorvastatin Calcium 10 mg 04/21/19 21:00 04/22/19 20:47 Lipitor PO 10 mg HS JOVON Administration Budesonide 0.5 mg 04/21/19 18:30 04/23/19 06:30 Pulmicort Neb Solution NEB 0.5 mg BID-RT JOVON Administration Calcium Carbonate 600 mg 04/22/19 09:00 04/23/19 09:06 Caltrate PO 600 mg DAILY JOVON Administration Cefdinir 300 mg 04/23/19 09:00 04/23/19 09:25 Omnicef PO 04/28/19 09:01 300 mg BID JOVON Administration Cholestyramine Resin 4 gm 04/19/19 22:00 04/21/19 22:28 Questran Light PO 4 gm Q2DAYS JOVON Administration Famotidine 20 mg 04/22/19 09:00 04/23/19 09:06 Pepcid PO 20 mg BID JOVON Administration Fluticasone Propionate 1 gm 04/23/19 09:00 04/23/19 09:25 Flonase Nasal [place] NASAL 2 spray DAILY JOVON Administration Gabapentin 100 mg 04/20/19 15:00 04/23/19 09:06 Neurontin PO 100 mg TID JOVON Administration Guaifenesin 600 mg 04/21/19 21:00 04/23/19 09:06 Mucinex PO 600 mg BID JOVON Administration Sodium Chloride 1,000 mls @ 100 mls/hr 04/20/19 09:30 04/23/19 08:37 Normal Saline 0.9% IV Not Given .Q10H JOVON Mycophenolate Mofetil 1,000 mg 04/19/19 21:00 04/23/19 09:08 Cellcept PO 1,000 mg BID JOVON Administration Nystatin 0 gm 04/21/19 21:00 04/23/19 09:09 Mycostatin Powder TOP Not Given BID JOVON Pregabalin 75 mg 04/19/19 21:00 04/23/19 09:06 Lyrica PO 75 mg TID JOVON Administration Pyridostigmine [place] 30 mg 04/19/19 21:00 04/23/19 09:05 Mestinon PO 30 mg TID JOVON Administration Sertraline HCl 50 mg 04/22/19 09:00 04/23/19 09:04 Zoloft PO 50 mg DAILY JOVON Administration Tamsulosin HCl 0.8 mg 04/19/19 21:00 04/22/19 20:47 Flomax PO 0.8 mg HS JOVON Administration Warfarin Sodium 3 mg 04/20/19 17:00 04/22/19 17:53 Coumadin PO 3 mg 1700 JOVON Administration - Exam General Appearance: NAD, awake alert General - other findings: morbid obesity ENT: moist mucosa Heart: RRR, no murmur, no gallops, no rubs Respiratory: CTAB, no wheezes, no rales, no ronchi Gastrointestinal: soft, non-tender, non-distended, normal bowel sounds Psychiatric: normal affect, normal behavior, A&O x 3 Hosp A/P (1) Pneumonia Code(s): J18.9 - PNEUMONIA, UNSPECIFIED ORGANISM Status: Acute (2) Sepsis Code(s): A41.9 - SEPSIS, UNSPECIFIED ORGANISM Status: Acute Qualifiers: Severe sepsis shock status: with septic shock (3) JOSE CARLOS (acute kidney injury) Code(s): N17.9 - ACUTE KIDNEY FAILURE, UNSPECIFIED Status: Acute (4) COPD (chronic obstructive pulmonary disease) Status: Chronic (5) Diabetes mellitus Code(s): E11.9 - TYPE 2 DIABETES MELLITUS WITHOUT COMPLICATIONS Status: Chronic (6) HTN (hypertension) Code(s): I10 - ESSENTIAL (PRIMARY) HYPERTENSION Status: Chronic (7) Morbid obesity with body mass index of 50 or higher Code(s): E66.01 - MORBID (SEVERE) OBESITY DUE TO EXCESS CALORIES Status: Chronic (8) Myasthenia gravis Code(s): G70.00 - MYASTHENIA GRAVIS WITHOUT (ACUTE) EXACERBATION Status: Chronic (9) SANKET (obstructive sleep apnea) Code(s): G47.33 - OBSTRUCTIVE SLEEP APNEA (ADULT) (PEDIATRIC) Status: Chronic (10) Hx of deep venous thrombosis Code(s): Z86.718 - PERSONAL HISTORY OF OTHER VENOUS THROMBOSIS AND EMBOLISM Status: Chronic (11) Chronic anticoagulation Code(s): Z79.01 - FPC (CURRENT) USE OF ANTICOAGULANTS Status: Chronic - Plan On Cefepime-> transitioned to Omnicef by Dr. Garcia Stress dose steroids, IV fluids Creatinine almost back to normal Respiratory support with BIPAP when sleeping, Dr. Garcia following Coumadin therapeutic Transition back to alf today on hospice per patient request.
[2019-04-23 12:33] VITALS: TEMP 97.9
--- NOTE | 2019-04-23 19:49 | DIS ---
DATE OF ADMISSION: 04/19/2019 DATE OF DISCHARGE: 04/23/2019 PRIMARY CARE PHYSICIAN: Dr. Ozzy Mishra. REASON FOR ADMISSION: Septic shock. DIAGNOSES AT DISCHARGE: 1. Pneumonia, likely aspiration. 2. Sepsis with septic shock. 3. Acute kidney injury. 4. Chronic obstructive pulmonary disease. 5. Diabetes mellitus. 6. Hypertension. 7. Morbid obesity. 8. Myasthenia gravis. 9. Obstructive sleep apnea. 10. History of deep vein thrombosis. 11. Chronic anticoagulation. PROCEDURES: None. CONSULTATIONS: 1. Pulmonology, Dr. Garcia. 2. Infectious Disease, Dr. Silva. SUMMARY OF HOSPITAL COURSE: This is a 69-year-old white male with a known history of extreme morbid obesity and hypoventilation syndrome along with aspiration and recurrent pneumonias. He developed fevers and cough at the [facility], was tried on Levaquin outpatient. The symptoms got worse after finishing the course. Eventually, he was noted to be febrile again, was brought into the ER, had hypotension, systolic blood pressures down into the 70s, unresponsive to fluid boluses and had to start him on Levophed. The patient has multiple listed allergies and so was eventually put on cefepime with pretreatment by Benadryl, which he did well with. The patient was admitted to the ICU. He was eventually titrated off the Levophed and improved markedly. He was noted to continue having trouble with dysphagia and a restricted diet was recommended. The patient discussed his prognosis with Dr. Garcia and with myself and eventually realized that he is going to keep having these problems and is not going to improve, he is no longer ambulatory and continues to get recurrent infections and he decided he would prefer to transition back to the [facility] hospice. He did make himself do not attempt resuscitation and is being discharged back to [facility] today. DISCHARGE MANAGEMENT: Discharged back to [facility] hosp[facility]. ACTIVITY: As tolerated. DIET: Regular diet with risk. EQUIPMENT AND SUPPLIES: Nebulizers and oxygen. FOLLOWUP: Follow up with the hospice doctor. MEDICATIONS: As per hospice recommendations. Arranging the details of this discharge took 35 minutes. Job ID: [id number] MTDD
== END 2019-04-23 14:45 | disposition hospice, home (50) | DRG 871 ==
LOC: ERS 14:21 → CCU 17:00
PROVIDERS: ADMIT Family Medicine; ATTEND Family Medicine
PROC: 3E033XZ Introduction of Vasopressor into Peripheral Vein, Percutaneous Approach (ICD-10-PCS; principal; 2019-04-19)
PROC: 06HY33Z Insertion of Infusion Device into Lower Vein, Percutaneous Approach (ICD-10-PCS; 2019-04-19)
PROC: 5A09357 Assistance with Respiratory Ventilation, Less than 24 Consecutive Hours, Continuous Positive Airway Pressure (ICD-10-PCS; 2019-04-20)
DX: A41.9 Sepsis, unspecified organism (principal); R65.21 Severe sepsis with septic shock; J69.0 Pneumonitis due to inhalation of food and vomit; Z66 Do not resuscitate; Z51.5 Encounter for palliative care; Z68.45 Body mass index [BMI] 70 or greater, adult; N17.9 Acute kidney failure, unspecified; E66.2 Morbid (severe) obesity with alveolar hypoventilation; I50.32 Chronic diastolic (congestive) heart failure; J44.9 Chronic obstructive pulmonary disease, unspecified; E11.9 Type 2 diabetes mellitus without complications; I11.0 Hypertensive heart disease with heart failure; N40.0 Benign prostatic hyperplasia without lower urinary tract symptoms; G70.00 Myasthenia gravis without (acute) exacerbation; B18.2 Chronic viral hepatitis C; Z90.49 Acquired absence of other specified parts of digestive tract; Z86.718 Personal history of other venous thrombosis and embolism; Z79.899 Other long term (current) drug therapy; Z74.01 Bed confinement status; Z87.891 Personal history of nicotine dependence; Z88.1 Allergy status to other antibiotic agents; Z88.0 Allergy status to penicillin; Z88.8 Allergy status to other drugs, medicaments and biological substances; Z79.51 Long term (current) use of inhaled steroids; Z79.01 Long term (current) use of anticoagulants
CPT/HCPCS: 36415; 36556; 71045; 80048; 80053; 81001; 82533; 82553; 83605; 84484; 85025; 85610; 87040; 87086; 87633; 94150; 94640; 94660; 96365; 96366; 96367; 96368; 96375; 96376; J0692; J1200; J1644; J1720; J1956; J3010; J3490; J7517; J7620; J7626; S0028